=== PATIENT | female | born 1975 | race Caucasian/White ===

== ENCOUNTER → 2018-12-11 13:54 | Outpatient (CLI) | payer OTHER, SELFPAY ==
[2018-12-11 15:19] LABS: Basophils # 0.1 K/mm3 (0-0.2); Basophils % 0.8 % (0.1-2.0); Eosinophils # 0.5 K/mm3 (0.0-0.4); Eosinophils % 3.8 % (0.1-12.0); Hematocrit 47.7 % (37.0-47.0); Hemoglobin 14.7 g/dL (12.2-16.2); Lymphocytes % 23.5 % (10-50); Mean Corpuscular HGB Conc 30.8 g/dL (31.8-35.4); Mean Corpuscular Hemoglobin 31.1 pg (27.0-31.2); Mean Corpuscular Volume 101.1 fl (81-99); Mean Platelet Volume 9.3 fl (7.4-10.4); Monocytes # 0.8 K/mm3 (0.1-1.0); Neutrophils # 8.5 K/mm3 (1.8-7.8); Neutrophils % 65.9 % (37.0-80.0); Platelet Count 580 K/mm3 (142-424); Red Blood Count 4.71 M/mm3 (4.20-5.40); Red Cell Distribution Width 13.7 % (11.5-17.5); White Blood Count 12.9 K/mm3 (4.8-10.8)
[2018-12-11 20:10] LABS: Alanine Aminotransferase 20 U/L (12-78); Albumin/Globulin Ratio 1.1 (1.1-1.8); Alkaline Phosphatase 77 U/L (46-116); Anion Gap 16.3 mEq/L (5-15); Aspartate Amino Transferase 14 U/L (15-37); Bilirubin,Total 0.4 mg/dL (0.2-1.0); Blood Urea Nitrogen 14 mg/dL (7-18); Calcium 9.5 mg/dL (8.5-10.1); Carbon Dioxide 25 mmol/L (21.0-32.0); Chloride 103 mmol/L (98-107); Cholesterol 178 mg/dL (140-200); Creatinine,Serum 0.88 mg/dL (0.55-1.02); Estimated Glomerular Filt Rate 70 ml/min (>60); GFR (African American) 84 ML/MIN (>60); Globulin 3.6 gm/dl (1.3-3.2); Glucose 99 mg/dL (74-106); HDL Cholesterol 45 mg/dL (29-89); LDL Cholesterol 100 mg/dL (0-130); Potassium 4.3 mmoL/L (3.5-5.1); Sodium 140 mmol/L (136-145); T4 (Thyroxine) 10.4 ug/dl (4.7-13.3); Thyroid Stimulating Hormone 1.22 uIU/ml (0.358-3.740); Total Protein,Serum 7.6 gm/dL (6.4-8.2); Triglycerides 163 mg/dL (30-200); VLDL Cholesterol 33 mg/dL (0-40)
[2018-12-14 17:04] LABS: Vitamin D 25 Hydroxy 25.4 ng/mL (30.0-100.0)
== END ==
PROVIDERS: Visit Provider Nurse Practitioner Family
DX: Z00.00 Encounter for general adult medical examination without abnormal findings (principal); I10 Essential (primary) hypertension; E55.9 Vitamin D deficiency, unspecified
CPT/HCPCS: 80053; 80061; 82652; 84436; 84443; 85025

== ENCOUNTER → 2018-12-29 15:02 | Outpatient (CLI) | payer OTHER, SELFPAY ==
[2018-12-29 15:04] LABS: MANUAL DIFFERENTIAL MANUAL DIFFERENTIAL (MANUAL DIFF)
[2018-12-29 15:46] LABS: Basophils # 0.1 K/mm3 (0-0.2); Basophils % 0.7 % (0.1-2.0); Eosinophils # 0.7 K/mm3 (0.0-0.4); Eosinophils % 4.9 % (0.1-12.0); Hemoglobin 14.7 g/dL (12.2-16.2); Lymphocytes # 4.1 K/mm3 (0.7-4.5); Lymphocytes % 30.6 % (10-50); Mean Corpuscular HGB Conc 32.6 g/dL (31.8-35.4); Mean Corpuscular Hemoglobin 31.8 pg (27.0-31.2); Mean Corpuscular Volume 97.5 fl (81-99); Monocytes # 0.8 K/mm3 (0.1-1.0); Monocytes % 6.2 % (1.7-9.3); Neutrophils # 7.6 K/mm3 (1.8-7.8); Neutrophils % 57.6 % (37.0-80.0); Platelet Count 399 K/mm3 (142-424); Red Blood Count 4.61 M/mm3 (4.20-5.40); Red Cell Distribution Width 13.1 % (11.5-17.5); White Blood Count 13.3 K/mm3 (4.8-10.8)
[2018-12-29 18:31] LABS: Eosinophils % 4 % (0-3); Lymphocytes % 38 % (10-50); Monocytes % 3 % (2-9); Neutrophils % 55 % (42-76); Platelet Estimate Normal; RBC Morphology Normal; Total Cells Counted 100
== END ==
PROVIDERS: Visit Provider Nurse Practitioner Family
DX: R79.89 Other specified abnormal findings of blood chemistry (principal)
CPT/HCPCS: 36415; 85007; 85014; 85018; 85048; 85049

== ENCOUNTER → 2019-01-09 15:35 | Outpatient (CLI) | payer OTHER, SELFPAY ==
--- NOTE | 2019-01-09 15:37 | MM_ITS ---
PROCEDURE: MM DIG SCREENING MAMM BI W/CAD CLINICAL INDICATION: Screening There is no personal or family history of breast cancer. COMPARISON: DMDB DIG MAMM-DX DOUGIE from 01/10/2014 TECHNIQUE: Standard CC and MLO images were obtained. R2 CAD reviewed. FINDINGS: Moderate somewhat heterogenic fibroglandular densities are seen in the central portions of both breasts. There is a benign-appearing micro calcification in each breast. There is no suspicious lesion and no suspicious microcalcifications. IMPRESSION: Moderate heterogenic breast density with no suspicious lesions seen BI-RAD Category: 2 Benign Finding(s) FOLLOW-UP: 1YR 1 Year Follow-up (A letter has been sent to the patient regarding results of the study.) Dictated by: Dr. Byron Godinez MD 01/11/2019 14:[address] Byron Godinez MD in [place] 01/11/2019 14:52
== END ==
PROVIDERS: PCP Nurse Practitioner Family; Visit Provider Emergency Medicine
DX: Z12.31 Encounter for screening mammogram for malignant neoplasm of breast (principal)
CPT/HCPCS: 77067

== ENCOUNTER → 2019-03-21 06:14 | Outpatient (CLI) | payer OTHER, SELFPAY ==
--- NOTE | 2019-03-21 06:15 | CA_ITS ---
APPROVED REPORT EXAM: Comprehensive 2D, Doppler, and color-flow Echocardiogram Cota: Zoë Calhoun RVT Ht: 5 ft 7 in Wt: 211lbs BSA: 2.07 BP: 149/83 mmHg Indications: Chest Pain, Shortness of Breath, Hyperlipidemia, Hypertension,Smoker,Abn EKG 2D Dimensions LVOT 1.93 cm (M/F) 1.5-2.5 M-Mode Dimensions RVDd 2.85 cm (0.9-2.6) LVDd 5.21 cm (3.5-5.7) LVDs 3.51 cm (3.5-5.7) IVSd 0.62 cm (0.6-1.1) PWd 0.37 cm (0.6-1.1) EF (Teich) 60.60% FS 32.60% EDV (Teich) 130.10 mL ESV (Teich) 51.20 mL LV Diastology E/A Ratio 1.33 Mitral Valve MV A Velocity 60.00 (40-130 cm/s) Left Ventricle Left atrium is mildly enlarged, left ventricle is normal size, mild concentric left ventricular hypertrophy, visually estimated ejection fraction 50%, endocardial surfaces are very poorly visualized, there appears to be mild hypokinesis involving the distal septum and apical wall. Grade 1 diastolic dysfunction seen without tissue Doppler evidence of raise left atrial pressure. Right Ventricle Right atrium and right ventricle are normal size and contractility. Aortic Valve Aortic valve is minimally thickened and fibrosed leaflet chordae display good mobility, there is no aortic stenosis aortic insufficiency. Mitral Valve Mitral valve is grossly normal, there is mild mitral regurgitation. Tricuspid Valve Tricuspid valve is grossly normal, there is mild tricuspid regurgitation. Pulmonic Valve Pulmonic valve is poorly visualized. Great Vessels Aortic root is normal size. Pericardium No significant pericardial effusion noted. Conclusion 1. Mildly enlarged left atrium, normal left ventricular size, mild concentric left ventricular hypertrophy, visually estimated ejection fraction 50% with segmental wall motion abnormality described above, grade 1 diastolic dysfunction seen without tissue Doppler evidence of raise left atrial pressure, endocardial surfaces are poorly visualized. 2. Mild mitral and tricuspid regurgitation. 3. No significant pericardial effusion noted. Electronically signed by : Wallace Boyce, 03/22/2019 14:35:17
--- NOTE | 2019-03-21 06:28 | NM_ITS ---
APPROVED REPORT Exam: Nuclear Stress Test Indication: Chest pain, HTN, High cholesterol, Tobacco use, Family history Patient Location: Outpatient Stress Tech: Geno Booth NM Tech:Maida Hitchcock, ARRT, RT (R)(N) Ht: 5 ft 7 in Wt: 212 lbs Bra Size: 44D HR: 74 bpm BP: 120/48 mmHg BSA: 2.07 m2 BMI: 33.2 History: Chest pain, HTN, High cholesterol, Tobacco use, Family history Procedure: Patient received a 0.4 mg of intravenous Lexiscan, resting heart rate 74 bpm, resting blood pressure 120/48 mmHg, with Lexiscan maximum heart rate achived was 106 bpm which is Less than 85 % of the maximum predicted heart rate and blood pressure was 129/70 mmHg. With Lexiscan, patient denied any complaint of chest pain. Electrocardiogram Resting electrocardiogram shows sinus rhythm right ventricular conduction delay, with Lexiscan there is less than 1.[address] segment depression noted from the baseline EKG. The EKG portion of the Lexiscan Myoview is nondiagnostic. Cardiac Stress and Resting SPECT Images: Cardiac Stress and Resting SPECT images were obtained using technetium 99m Myoview 31.6 mCi stress and 10.28 mCi at rest. Gated SPECT for analysis of segmental wall motion and calculation of the ejection fraction also done. Cardiac stress and resting SPECT images show uniform myocardial activity without segmental perfusion abnormality, computer derived ejection fraction is over 65% with no regional wall motion abnormality, right ventricle is normal size and contractility. Conclusion: 1. The EKG portion of the Lexiscan Myoview is nondiagnostic. 2. No scintigraphic evidence of reversible ischemia seen, computer derived ejection fraction is over 65% with no regional wall motion abnormality, right ventricle is normal size and contractility. 3. Normal Lexiscan Myoview study. Electronically signed by : Wallace Boyce, 03/22/2019 12:55:16
--- NOTE | 2019-03-21 06:28 | CA_ITS ---
APPROVED REPORT Exam: Exercise Treadmill Technologist: Geno Booth Ht: 5 ft 7 in Wt: 212 lbs BSA: 2.07 m2 HR: 74 bpm BP: 120/48 mmHg Indications: Chest pain, abnormal ekg Medical History Medications: Atorvastatin,,,,, CloPIdogrel,,,,, FluTICASONE,,,,, CetIRIZINE HCI,,,,, Stress Test Details Test: LEXISCAN HR Resting HR: 71 bpm Max Heart Rate (APMHR): 176 bpm Max HR Achieved: 111 bpm Target HR (85% APMHR): 149 bpm % of APMHR: 63 Recovery HR: 86 bpm BP Resting BP: 120.0/48.0 mmHg Max BP: 129.0/70.0 mmHg Recovery BP: 115.0/65.0 mmHg ECG Clinical Exercise duration: 04:00 min Highest Stage Achieved: Exercise capacity: 1.0 METs Stress ECG Conclusion Resting ECG: Sinus rhythm Lexiscan portion complete. Patient complained of shortness of breath and chest pain during peak infusion. Symptoms: Chest pain and shortness of breath during peak infusion. Resolved in recovery. Arrhythmias/Ectopy: Occasional PVC ST-T Changes: Less than 1.[address] depression. Conclusion: Images to follow. Electronically signed by : Wallace Boyce, 03/22/2019 12:53:07
--- NOTE | 2019-03-21 07:30 | HMH.ITSHM ---
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 []BISOPROLOL ATORVASTATIN LISINOPRIL CLOPIDOGREL CETIRIZINE FLUTICASONE
== END ==
PROVIDERS: PCP Nurse Practitioner Family; Visit Provider Physician Assistant
DX: R07.9 Chest pain, unspecified (principal); R60.0 Localized edema; I10 Essential (primary) hypertension; Z72.0 Tobacco use; R94.31 Abnormal electrocardiogram [ECG] [EKG]
CPT/HCPCS: 78452; 93017; 93306; A9502; J2785

== ENCOUNTER → 2019-04-16 15:33 | Outpatient (CLI) | payer OTHER, SELFPAY ==
[2019-04-16 18:14] LABS: Alanine Aminotransferase 24 U/L (9-52); Albumin Level 4.1 g/dL (3.4-5.0); Alkaline Phosphatase 79 U/L (46-116); Aspartate Amino Transferase 16 U/L (15-37); Bilirubin,Direct 0.1 mg/dL (0.0-0.2); Bilirubin,Indirect 0.1 mg/dL (0.0-0.9); Bilirubin,Total 0.2 mg/dL (0.2-1.0); Chol/HDL Ratio 2.8 (1-3.5); Cholesterol 108 mg/dL (140-200); HDL Cholesterol 38 mg/dL (29-89); LDL Cholesterol 49 mg/dL (0-130); Total Protein,Serum 7.6 g/dL (6.4-8.2); Triglycerides 105 mg/dL (30-200); VLDL Cholesterol 21 mg/dL (0-40)
== END ==
PROVIDERS: Visit Provider Physician Assistant
DX: E78.5 Hyperlipidemia, unspecified (principal); I10 Essential (primary) hypertension; R07.9 Chest pain, unspecified; E66.9 Obesity, unspecified; Z72.0 Tobacco use
CPT/HCPCS: 36415; 80061; 80076

== ENCOUNTER 2019-11-13 13:38 | Emergency (ER) | payer OTHER, SELFPAY ==
[2019-11-13 13:56] VITALS: BP 133/82; PULSE 79; RESP 19; TEMP 36.9; O2SAT 99; BMI 33.0
--- NOTE | 2019-11-13 14:26 | HMH.EDUTC ---
[facility] [place] Disposition Clinical Impression: Abdominal pain Qualifiers: Abdominal location: epigastric Qualified Code(s): R10.13 - Epigastric pain Disposition: Still a Patient Condition on Discharge: Fair Referrals: Clifton Armstrong MD [Primary Care Provider] - Time of Disposition: 14:39 Medical Decision Making - Medical Records Medical records reviewed: No: I reviewed the patient's medical records. - Johnson Inquiry Pt receiving controlled substance: No Vital Signs: 11/13/19 13:56 Temperature 98.4 F Temperature Source Oral Pulse Rate [Right Brachial] 79 Respiratory Rate 19 Blood Pressure [Right Arm] 133/82 Blood Pressure Mean [Right Arm] 99 Blood Pressure Source [Right Arm] Automatic Cuff Blood Pressure Position [Right Arm] Sitting 02 Sat by Pulse Oximetry 99 Oxygen Delivery Method Room Air Medical Decision Narrative: I transferred her to the ER due to the abdominal pain and the severity of her abdominal tenderness. [facility] HPI - General Stated complaint: pain near nable Time Seen by Provider: 11/13/19 14:26 Mode of Arrival: Ambulatory Source of Information: Patient Limitations: No Limitations Description of Symptoms (Recalled from Triage Doc. by RN): PATIENT STATES SHE WAS PICKING UP TOYS TUESDAY AND FELT A PAIN BEHIND HER BELLY BUTTON; C/O SORENESS AND TENDERNESS IN THIS AREA NOW HEENT Symptoms (Recalled from RN notes): No Resp Symptoms (Recalled from RN notes): No Skin Symptoms (Recalled from RN notes): No MS Symptoms (Recalled from RN notes): No Functional Status (Recalled from RN notes): WNL - History of Present Illness Provider Complaint: She states that on Tuesday (4 days ago) she was bending over picking up toys and she felt something pull in her abdominal wall. Since then she has had moderate to severe tenderness in the area surrounding her navel. She states that she has also been able to see a buldge in the area just to her left of her navel. She has had nausea and poor appetite accompaning the pain. She denies any change in her bowel movements. - Related Data Home Medications Medication Instructions Recorded Confirmed Cetirizine HCl [Zyrtec] 10 mg PO DAILY 01/27/19 10/16/19 Previous Rx's Medication Instructions Recorded Clopidogrel Bisulfate [Plavix 75mg 75 mg PO DAILY #30 tab 03/16/19 Tab] atorvastatin 10 mg tablet 10 mg PO HS #30 tab 03/23/19 bisoprolol fumarate 5 mg tablet 5 mg PO DAILY #30 tab 03/23/19 lisinopril 40 mg tablet 40 mg PO DAILY #90 tab 10/16/19 Allergies Allergy/AdvReac Type Severity Reaction Status Date / Time azithromycin AdvReac Mild stomach Verified 10/16/19 15:41 [From Zithromax Z-Abel] cramping - Worker's Comp Is this a Worker's Comp case?: No [facility] History - Hepatitis A Screen Drug use history?: No High risk sexual behaviors?: No History of sexually transmitted infection?: No Currently employed?: No Childcare worker?: No Do you have indoor plumbing?: Yes Do you have electricity?: Yes Attestation statement:: This patient has been screened for Hepatitis A risk factors. I have reviewed the patient's past medical history: Yes Medical History: Reports:: Coronary Artery Disease, Gastroesophageal Reflux Disease(GERD), Hyperlipidemia, Hypertension Other Medical History: Reports: Sinus Problems Other Surgeries: Yes: No Previous Surgery, Cardiac Catheterization, Tubal Ligation, Other Amputation: No Fractures: No - Social History Smoking Status: Current every day smoker Tobacco Type: cigarettes # Packs/Day (cigarettes): 1 #Yrs smoked (if former smoker): 15 Alcohol Intake: never Substance Use Type: denies use Occupational Status: other Family Hx:: Cancer, Heart Attack, Coronary Artery Disease Comment: Brother- of [place]@48 ROS Obtained: Yes All systems reviewed & no additional complaints - Constitutional Constitutional: Denies chills, Denies fever(s), Reports poor appetite, Reports malaise - Eyes Eyes: Denies eye discharg
--- NOTE | 2019-11-13 14:39 | PC.NURSE ---
PATIENT SENT TO ER PER BELA CEBALLOS APRN FOR FURTHER EVALUATION FOR ABDOMINAL TENDERNESS BEHIND UMBILICUS. REPORT GIVEN TO Yamileth MURRAY RN
[2019-11-13 14:52] VITALS: BP 131/89; PULSE 88; RESP 17; TEMP 37; O2SAT 99; BMI 33.0
--- NOTE | 2019-11-13 14:55 | CT_ITS ---
PROCEDURE: CT ABDOMEN PELVIS W CON CLINICAL INDICATION: abd pain Left-sided abdominal pain COMPARISON: No exams were available for comparison TECHNIQUE: IV Contrast: 75ML OPTIRAY 350 Oral Contrast None Axial images obtained with sagittal and coronal reformats. All CT scans at the facility use one or more dose reduction, viz: automated exposure control, ma/kV adjustment per patient size (including targeted exams where dose is matched to indication, i.e. head), or iterative reconstruction technique. FINDINGS: The liver, gallbladder, spleen, adrenal glands, and pancreas have an unremarkable appearance. No renal or ureteral calculi. There is mild nonspecific thickening of the distal esophagus. Negative appendix. Colonic diverticulosis without diverticulitis. There is a small left ovarian cyst at 2 cm. Hyperdensity is noted along the left aspect of the fundus of the uterus measuring 1.5 cm suggesting a small fibroid. An additional hyperdensity along the fundus of the uterus on the right at 7 mm and may be due to small fibroid. Bilateral tubal ligation. Small inguinal lymph nodes are present bilaterally. There is degenerative disc disease at L1-L2 IMPRESSION: No acute abdominal pelvic finding. Colonic diverticulosis without diverticulitis 2 cm left ovarian cyst. Uterine fibroids Nonspecific thickening of the distal esophagus Dictated by: Emery Momin MD 11/13/2019 17:35 Emery Momin MD in [place] 11/13/2019 17:35
[2019-11-13 15:02] LABS: Microscopic, Urine URINE MICROSCOPIC (MICROSCOPIC)
[2019-11-13 15:04] LABS: Basophils # 0.1 K/mm3 (0-0.2); Basophils % 0.6 % (0.1-2.0); Eosinophils # 0.7 K/mm3 (0.0-0.4); Eosinophils % 4.6 % (0.1-12.0); Hematocrit 48.2 % (37.0-47.0); Hemoglobin 16.1 g/dL (12.2-16.2); Lymphocytes # 3.4 K/mm3 (0.7-4.5); Lymphocytes % 23.3 % (10-50); Mean Corpuscular HGB Conc 33.5 g/dL (31.8-35.4); Mean Corpuscular Hemoglobin 33.1 pg (27.0-31.2); Mean Corpuscular Volume 99.1 fl (81-99); Mean Platelet Volume 8.2 fl (7.4-10.4); Monocytes # 0.7 K/mm3 (0.1-1.0); Monocytes % 4.9 % (1.7-9.3); Neutrophils # 9.6 K/mm3 (1.8-7.8); Neutrophils % 66.5 % (37.0-80.0); Platelet Count 418 K/mm3 (142-424); Red Blood Count 4.87 M/mm3 (4.20-5.40); Red Cell Distribution Width 13.1 % (11.5-17.5); White Blood Count 14.4 K/mm3 (4.8-10.8)
[2019-11-13 15:05] LABS: Appearance,Urine CLEAR (Clear); Bilirubin,Urine Negative (Negative); Blood, Urine Negative (Negative); Color,Urine YELLOW (Yellow); Glucose,Urine (UA) Negative (Negative); Ketones,Urine Negative (Negative); Leukocyte Esterase,Urine Negative (Negative); Nitrate,Urine Negative (Negative); PH,Urine 5.5 (5.0-8.5); Protein,Urine Negative (Negative); Specific Gravity, Urine 1.015 (1.005-1.030); Urobilinogen,Urine 0.2 EU/dl (0.2)
[2019-11-13 15:18] LABS: Chloride 103 mmol/L (98-107); Potassium 4.4 mmoL/L (3.5-5.1); Sodium 140 mmol/L (136-145)
--- NOTE | 2019-11-13 15:18 | HMH.EDGENADL ---
ED Disposition Clinical Impression: Abdominal muscle strain Qualifiers: Encounter type: initial encounter Qualified Code(s): S39.011A - Strain of muscle, fascia and tendon of abdomen, initial encounter Disposition: Home, Self-Care Condition on Discharge: Good Instructions: DI for Abdominal Pain-Adult Additional Instructions: Ibuprofen for pain. Follow-up with primary care provider if not improving in 2 to 3 days. Additional instructions for ABDOMINAL PAIN: Return immediately if worsening abdominal pain, vomiting, shortness of breath, fever, vomiting of blood or abdominal distention. Referrals: Clifton Armstrong MD [Primary Care Provider] - Forms: Work/School Release - Critical Care Critical Care Time: No Attestation: On 11/13/19, the high probability of a clinically significant, sudden or life threatening deterioration of the following system(s) required my full and direct attention, intervention and personal management. The time I documented below is in addition to time spent performing reported procedures but includes the following listed in this critical care notation. Medical Decision Making - Medical Records Medical records reviewed: Yes: I reviewed the patient's medical records. - Johnson Inquiry Pt receiving controlled substance: No Vital Signs: 11/13/19 13:56 11/13/19 14:52 11/13/19 17:45 Temperature 98.4 F 98.6 F Temperature Source Oral Oral Pulse Rate Pulse Rate [Right Brachial] 79 88 85 Respiratory Rate 19 17 17 Blood Pressure Blood Pressure [Right Arm] 133/82 131/89 119/79 Blood Pressure Mean [Right Arm] 99 103 92 Blood Pressure Source [Right Arm] Automatic Cuff Blood Pressure Position [Right Arm] Sitting 02 Sat by Pulse Oximetry 99 99 98 Oxygen Delivery Method Room Air Room Air 11/13/19 18:40 Temperature 98.6 F Temperature Source Oral Pulse Rate 89 Pulse Rate [Right Brachial] Respiratory Rate 18 Blood Pressure 125/70 Blood Pressure [Right Arm] Blood Pressure Mean [Right Arm] Blood Pressure Source [Right Arm] Blood Pressure Position [Right Arm] 02 Sat by Pulse Oximetry Oxygen Delivery Method Room Air - Lab Data Lab results reviewed: Yes: I reviewed the patient's lab results. Lab Results 11/13/19 14:50: Urine Color Yellow, Urine Appearance Clear, Urine pH 5.5, Ur Specific Vulcan 1.015, Urine Protein Negative, Urine Glucose (UA) Negative, Urine Ketones Negative, Urine Blood Negative, Urine Nitrate Negative, Urine Bilirubin Negative, Urine Urobilinogen 0.2, Ur Leukocyte Esterase Negative, Urine WBC 3-5, Ur Squamous Epith Cells 3-5 11/13/19 14:50: WBC 14.4 H, RBC 4.87, Hgb 16.1, Hct 48.2 H, MCV 99.1 H, MCH 33.1 H, MCHC 33.5, RDW 13.1, Plt Count 418, MPV 8.2, Neut % (Auto) 66.5, Lymph % (Auto) 23.3, Young % (Auto) 4.9, Eos % (Auto) 4.6, Baso % (Auto) 0.6, Neut # (Auto) 9.6 H, Lymph # (Auto) 3.4, Young # (Auto) 0.7, Eos # (Auto) 0.7 H, Baso # (Auto) 0.1 11/13/19 14:50: Sodium 140, Potassium 4.4, Chloride 103, Carbon Dioxide 24, Anion Gap 17.4 H, BUN 13, Creatinine 0.70, Estimated Creat Clear 153, Estimated GFR 90, Est GFR ( Amer) 109, Glucose 111 H, Calcium 10.3 H, Total Bilirubin 0.6, AST 32, ALT 27, Alkaline Phosphatase 89, Total Protein 8.5 H, Albumin 4.8, Globulin 3.7 H, Albumin/Globulin Ratio 1.3, Amylase 76, Lipase 78 Result diagrams: 11/13/19 14:50 11/13/19 14:50 Orders (Tests/Meds): ED MEDICATIONS Discontinued Medications Generic Name Dose Route Start Last Admin Trade Name Shira PRN Reason Stop Dose Admin Ioversol 75 ml 11/13/19 16:08 11/13/19 16:09 Rad-Optiray 350 100ml Vial IV 11/13/19 16:09 75 ml ONCE ONE Administration Protocol Sodium Chloride 10 ml 11/13/19 16:08 11/13/19 16:09 Rad-Saline Flush 10ml Syringe IV 11/13/19 16:09 10 ml ONCE ONE Administration - CT Data CT Scan: Abdomen, Pelvis Time Received: 18:[address] Reviewed: Yes: I have viewed the radiologist's interpretation Findings Narrat
[2019-11-13 15:20] LABS: Alanine Aminotransferase 27 U/L (12-78); Alkaline Phosphatase 89 U/L (38-126); Amylase 76 U/L (30-110); Anion Gap 17.4 mEq/L (5-15); Aspartate Amino Transferase 32 U/L (14-36); Bilirubin,Total 0.6 mg/dl (0.2-1.3); Blood Urea Nitrogen 13 mg/dl (7-17); Carbon Dioxide 24 mmol/L (22.0-30.0); Creatinine Clearance Estimated 153 mL/min (50-200); Estimated Glomerular Filt Rate 90 ml/min (>60); GFR (African American) 109 ML/MIN (>60)
[2019-11-13 15:21] LABS: Albumin Level 4.8 g/dl (3.5-5.0); Albumin/Globulin Ratio 1.3 (1.1-1.8); Calcium 10.3 mg/dl (8.4-10.2); Globulin 3.7 g/dL (1.3-3.2); Glucose 111 mg/dl (74-100); Lipase 78 U/L (23-300); Total Protein,Serum 8.5 g/dl (6.3-8.2)
--- NOTE | 2019-11-13 15:40 | PC.NURSE ---
spoke with radiology concerning ct report. radiology states that radiologist is covered up report sent to [facility] for timely reading.
[2019-11-13 17:45] VITALS: BP 119/79; PULSE 85; RESP 17; O2SAT 98
--- NOTE | 2019-11-13 18:07 | PC.NURSE ---
pt and family updated on plan of care both deny needs or questions. awaiting ct report from [facility].
[2019-11-13 18:40] VITALS: BP 125/70; PULSE 89; RESP 18; TEMP 37; O2SAT 100
== END 2019-11-13 18:44 | disposition home or self-care (01) ==
LOC: UTC 14:39 → ER 14:40
PROVIDERS: Emergency Provider Emergency Medicine; PCP Emergency Medicine
DX: S39.011A Strain of muscle, fascia and tendon of abdomen, initial encounter (principal); X50.0XXA Overexertion from strenuous movement or load, initial encounter; I25.10 Atherosclerotic heart disease of native coronary artery without angina pectoris; K21.9 Gastro-esophageal reflux disease without esophagitis; E78.5 Hyperlipidemia, unspecified; I10 Essential (primary) hypertension; F17.210 Nicotine dependence, cigarettes, uncomplicated
CPT/HCPCS: 74177; 80053; 81001; 82150; 83690; 85025; 99284; Q9967

== ENCOUNTER → 2020-04-15 10:21 | Outpatient (CLI) | payer OTHER, SELFPAY ==
[2020-04-15 11:21] LABS: Chloride 107 mmol/L (98-107); Potassium 4.7 mmoL/L (3.5-5.1); Sodium 139 mmol/L (136-145)
[2020-04-15 11:23] LABS: Alanine Aminotransferase 18 U/L (12-78); Anion Gap 10.7 mEq/L (5-15); Aspartate Amino Transferase 22 U/L (14-36); Bilirubin,Unconjugated 0.2 mg/dL (0.0-1.1); Blood Urea Nitrogen 16 mg/dl (7-17); Carbon Dioxide 26 mmol/L (22.0-30.0); Estimated Glomerular Filt Rate 60 ml/min (>60); GFR (African American) 73 ML/MIN (>60)
[2020-04-15 11:24] LABS: Albumin Level 4.5 g/dl (3.5-5.0); Alkaline Phosphatase 66 U/L (38-126); Bilirubin,Direct 0.2 mg/dl (0.0-0.4); Bilirubin,Indirect 0.2 mg/dL (0.0-0.9); Bilirubin,Total 0.4 mg/dl (0.2-1.3); Calcium 10.1 mg/dl (8.4-10.2); Chol/HDL Ratio 3.1 (1-3.5); Cholesterol 187 mg/dl (140-200); Glucose 112 mg/dl (74-100); HDL Cholesterol 61 mg/dl (40-60); Total Protein,Serum 7.6 g/dl (6.3-8.2); Triglycerides 167 mg/dl (30-150); VLDL Cholesterol 33 mg/dL (0-40)
[2020-04-15 11:35] LABS: Direct LDL Cholesterol 95.62 mg/dL (100-129)
== END ==
PROVIDERS: Visit Provider Physician Assistant
DX: I25.10 Atherosclerotic heart disease of native coronary artery without angina pectoris (principal); I10 Essential (primary) hypertension; Z79.899 Other long term (current) drug therapy
CPT/HCPCS: 36415; 80048; 80061; 80076

== ENCOUNTER → 2020-06-11 06:44 | Outpatient (CLI) | payer OTHER, SELFPAY ==
[2020-06-11 07:25] LABS: Bilirubin,Unconjugated 0.7 mg/dL (0.0-1.1)
[2020-06-11 07:26] LABS: Alanine Aminotransferase 22 U/L (12-78); Albumin Level 4.4 g/dl (3.5-5.0); Alkaline Phosphatase 71 U/L (38-126); Aspartate Amino Transferase 23 U/L (14-36); Bilirubin,Indirect 0.6 mg/dL (0.0-0.9); Bilirubin,Total 0.6 mg/dl (0.2-1.3); Chol/HDL Ratio 2.1 (1-3.5); Cholesterol 108 mg/dl (140-200); HDL Cholesterol 52 mg/dl (40-60); Triglycerides 80 mg/dl (30-150); VLDL Cholesterol 16 mg/dL (0-40)
[2020-06-11 07:37] LABS: Direct LDL Cholesterol 36.19 mg/dL (100-129)
== END ==
PROVIDERS: Visit Provider Physician Assistant
DX: E78.5 Hyperlipidemia, unspecified (principal); I11.9 Hypertensive heart disease without heart failure; I25.10 Atherosclerotic heart disease of native coronary artery without angina pectoris; Z72.0 Tobacco use
CPT/HCPCS: 36415; 80061; 80076

== ENCOUNTER → 2020-06-19 09:03 | Outpatient (CLI) | payer OTHER, SELFPAY ==
--- NOTE | 2020-06-19 11:30 | XR_ITS ---
PROCEDURE: XR WRIST RT MIN 3V CLINICAL INDICATION: Rt wrist pain COMPARISON: No exams were available for comparison FINDINGS: No fracture or dislocation. No lytic or blastic change. There is normal mineralization. The joint spaces are well-preserved. No significant degenerative/arthritic changes. No erosive changes evident. Other findings:There is a small well-circumscribed cystic area within the lunate medially. This area measures approximately 3 x 2 mm and is nonspecific. IMPRESSION: No acute finding. Benign-appearing cystic area the lunate Dictated by: Emery Momin MD 06/19/2020 14:23 Emery Momin MD in [place] 06/19/2020 14:23
== END ==
PROVIDERS: PCP Emergency Medicine; Visit Provider Orthopaedic Surgery
DX: M25.531 Pain in right wrist (principal)
CPT/HCPCS: 73110

== ENCOUNTER 2020-06-20 09:16 | Outpatient (RCR) | payer OTHER, SELFPAY | END 2020-06-20 10:10 | disposition home or self-care (01) | LOC: OT 09:16 | PROVIDERS: Visit Provider Orthopaedic Surgery | DX: M65.4 Radial styloid tenosynovitis [de Quervain] (principal) | CPT/HCPCS: 97763 ==

== ENCOUNTER 2020-10-05 18:33 | Emergency (ER) | payer OTHER, SELFPAY ==
[2020-10-05 18:45] VITALS: BP 130/86; PULSE 103; RESP 24; TEMP 37.8; O2SAT 96; BMI 33.2
[2020-10-05 19:11] LABS: UTC Strep Screen (Rapid) Negative (Negative)
[2020-10-05 19:16] LABS: Influenza A, PCR Not Detected (NotDetected); Influenza B, PCR Not Detected (NotDetected)
--- NOTE | 2020-10-05 19:37 | HMH.EDUTC ---
[facility] [place] Disposition Clinical Impression: Exposure to COVID-19 virus Disposition: Home, Self-Care Condition on Discharge: Good Instructions: DI for COVID-19 (Suspected or Confirmed ), Coronavirus Disease 2019, COVID-19: Testing and Tracing, Preventing the Spread of Coronavirus Discharge Instructions Additional Instructions: No sign of a bacterial infection. Likely viral. Viruses can take 7-14 days to run their course. Nasal saline and bulb syringe or nose Suyapa to remove nasal drainage to help with nasal congestion. Hard to eat, drink, sleep with nasal congestion so important to keep this cleaned out. Monitor temp. Tylenol or Motrin as needed for pain or fever Encourage fluids, water, Gatorade, Powerade, Pedialyte if /toddler/child Warm salt water gargles Warm fluids Sore throat lozenges Sleep elevated Humidifier/vaporizer Follow-up immediately for new or worsening symptoms or no noticeable improvement over the next 48-72 hours. your covid swab was sent to lab call tomorrow for test result Referrals: Clifton Armstrong MD [Primary Care Provider] - Time of Disposition: 19:41 Medical Decision Making - Johnson Inquiry Pt receiving controlled substance: No Vital Signs: 10/05/20 18:45 Temperature 100.0 F H Temperature Source Oral Pulse Rate [Right Brachial] 103 H Respiratory Rate 24 Blood Pressure [Right Arm] 130/86 Blood Pressure Mean [Right Arm] 100 Blood Pressure Source [Right Arm] Automatic Cuff Blood Pressure Position [Right Arm] Sitting 02 Sat by Pulse Oximetry 96 Oxygen Delivery Method Room Air - Lab Data Lab Results 10/05/20 19:04: Strep Scn Rapid Clinic Negative Orders (Tests/Meds): ORDERS Category Date Time Status Rapid PCR Covid and Flu A/B Stat Lab 10/05/20 18:05 Received Strep Screen Confirmation Stat Micro 10/05/20 19:04 Received [facility] [place] HPI - General Chief complaint: [facility]gent [facility] Stated complaint: fever,Symptoms Time Seen by Provider: 10/05/20 19:37 Mode of Arrival: Ambulatory Source of Information: Patient Limitations: No Limitations Description of Symptoms (Recalled from Triage Doc. by RN): PATIENT C/O FEVER, HEADACHE, SORE THROAT, AND BODY ACHES THAT STARTED YESTERDAY. RECENTLY EXPOSED TO COVID HEENT Symptoms (Recalled from RN notes): Yes Resp Symptoms (Recalled from RN notes): No Skin Symptoms (Recalled from RN notes): No MS Symptoms (Recalled from RN notes): No Functional Status (Recalled from RN notes): WNL - History of Present Illness Provider Complaint: 45 yr old female presents for cough, body aches,chills and sore throat that started yesterday. has been exposed to covid and has had covid vaccine - Related Data Home Medications Medication Instructions Recorded Confirmed Cetirizine HCl [Zyrtec] 10 mg PO DAILY 01/27/19 06/20/20 Previous Rx's Medication Instructions Recorded lisinopril 40 mg tablet 40 mg PO DAILY #90 tab 10/16/19 atorvastatin 40 mg tablet 40 mg PO DAILY #90 tab 04/15/20 clopidogrel 75 mg tablet See Rx Instructions .ROUTE 05/20/20 .COMPLEX #30 tab bisoprolol fumarate 5 mg tablet See Rx Instructions .ROUTE 07/14/20 .COMPLEX #30 tab Allergies Allergy/AdvReac Type Severity Reaction Status Date / Time azithromycin AdvReac Mild stomach Verified 06/20/20 08:44 [From Zithromax Z-Abel] cramping - Worker's Comp Is this a Worker's Comp case?: No [facility] History - Hepatitis A Screen Drug use history?: No High risk sexual behaviors?: No History of sexually transmitted infection?: No Currently employed?: No Childcare worker?: No Do you have indoor plumbing?: Yes Do you have electricity?: Yes Attestation statement:: This patient has been screened for Hepatitis A risk factors. I have reviewed the patient's past medical history: Yes Medical History: Reports:: Coronary Artery Disease, Gastroesophageal Reflux Disease(GERD), Hyperlipidemia, Hypertension Other Medical History: Reports: Sinus Problems Other S
[2020-10-05 19:41] LABS: Coronavirus 19, PCR Detected (NotDetected)
[2020-10-05 19:42] VITALS: BP 130/86; PULSE 103; RESP 24; TEMP 37.8; O2SAT 96
--- NOTE | 2020-10-05 19:43 | PC.NURSE ---
PATIENT NOTIFIED OF POSITIVE COVID TEST AT THIS TIME
== END 2020-10-05 19:47 | disposition home or self-care (01) ==
PROVIDERS: Emergency Provider Nurse Practitioner Family; PCP Emergency Medicine
DX: U07.1 COVID-19 (principal); K21.9 Gastro-esophageal reflux disease without esophagitis; E78.5 Hyperlipidemia, unspecified; I10 Essential (primary) hypertension; I25.10 Atherosclerotic heart disease of native coronary artery without angina pectoris; F17.210 Nicotine dependence, cigarettes, uncomplicated
CPT/HCPCS: 87880; 99203; G0463; U0003

== ENCOUNTER 2020-10-14 17:25 | Emergency (ER) | payer OTHER, SELFPAY ==
[2020-10-14 17:27] VITALS: BP 130/69; PULSE 76; RESP 20; TEMP 37; O2SAT 99; BMI 33.2
[2020-10-14 18:10] VITALS: BMI 33.2
--- NOTE | 2020-10-14 18:11 | CT_ITS ---
PROCEDURE INFORMATION: Exam: CTA Chest With Contrast Exam date and time: 10/14/2020 6:11 PM Age: 45 years old Clinical indication: Left-sided; Patient HX: Left posterior rib pain with breathing, covid + 8-8-21; Additional info: Pe protocol TECHNIQUE: Imaging protocol: Computed tomographic angiography of the chest with contrast. 3D rendering (Not supervised by radiologist): MIP and/or 3D reconstructed images were created by the technologist. Radiation optimization: All CT scans at this facility use at least one of these dose optimization techniques: automated exposure control; mA and/or kV adjustment per patient size (includes targeted exams where dose is matched to clinical indication); or iterative reconstruction. Contrast material: ISOVUE; Contrast volume: 70 ml; Contrast route: INTRAVENOUS (IV); COMPARISON: CR XR CHEST 2V 03/15/2019 9:40 PM FINDINGS: Pulmonary arteries: Normal. No pulmonary emboli. Aorta: Unremarkable. No aortic aneurysm. No aortic dissection. Lungs: 5 mm and 3 mm pulmonary nodule in the lingula. No pneumonia. Pleural spaces: Unremarkable. No pneumothorax. No pleural effusion. Heart: Unremarkable. No cardiomegaly. No pericardial effusion. Lymph nodes: Unremarkable. No enlarged lymph nodes. Bones/joints: Unremarkable. No acute fracture. Soft tissues: Unremarkable. IMPRESSION: 1. No acute cardiopulmonary process. No pulmonary embolism. 2. 5mm and 3 mm pulmonary nodules in the lingula. For patients at low risk (minimal or absent history of smoking and of other known risk factors), no routine follow-up is indicated. For patients at high risk (history of smoking or of other known risk factors), consider optional CT at 12 months. (dario Rodriguez., Fleischner Society, 2017)
--- NOTE | 2020-10-14 18:12 | PC.NURSE ---
UA sent to lab
[2020-10-14 18:31] LABS: Basophils # 0.1 K/mm3 (0-0.2); Basophils % 0.6 % (0.1-2.0); Eosinophils # 0.6 K/mm3 (0.0-0.4); Eosinophils % 4.4 % (0.1-12.0); Hematocrit 44.3 % (37.0-47.0); Hemoglobin 14.8 g/dL (12.2-16.2); Lymphocytes # 2.9 K/mm3 (0.7-4.5); Lymphocytes % 22.3 % (10-50); Mean Corpuscular HGB Conc 33.4 g/dL (31.8-35.4); Mean Corpuscular Hemoglobin 30.6 pg (27.0-31.2); Mean Corpuscular Volume 91.6 fl (81-99); Monocytes # 0.7 K/mm3 (0.1-1.0); Monocytes % 5.5 % (1.7-9.3); Neutrophils # 8.7 K/mm3 (1.8-7.8); Neutrophils % 67.1 % (37.0-80.0); Platelet Count 377 K/mm3 (142-424); Red Blood Count 4.84 M/mm3 (4.20-5.40); Red Cell Distribution Width 13.1 % (11.5-17.5)
[2020-10-14 18:32] LABS: Chloride 106 mmol/L (98-107); Potassium 3.9 mmoL/L (3.5-5.1); Sodium 139 mmol/L (136-145)
[2020-10-14 18:35] LABS: Alanine Aminotransferase 19 U/L (12-78); Albumin Level 4.3 g/dl (3.5-5.0); Albumin/Globulin Ratio 1.4 (1.1-1.8); Alkaline Phosphatase 70 U/L (38-126); Anion Gap 13.9 mEq/L (5-15); Aspartate Amino Transferase 27 U/L (14-36); Bilirubin,Total 0.3 mg/dl (0.2-1.3); Blood Urea Nitrogen 13 mg/dl (7-17); Calcium 8.9 mg/dl (8.4-10.2); Carbon Dioxide 23 mmol/L (22.0-30.0); Creatinine Clearance Estimated 115 mL/min (50-200); Estimated Glomerular Filt Rate 67 ml/min (>60); GFR (African American) 82 ML/MIN (>60); Glucose 120 mg/dl (74-100); Total Protein,Serum 7.3 g/dl (6.3-8.2)
--- NOTE | 2020-10-14 19:03 | HMH.EDGENADL ---
ED Disposition Clinical Impression: Pleuritis, Chest wall pain Disposition: Home, Self-Care Condition on Discharge: Good Instructions: DI for Pleurisy Additional Instructions: Ibuprofen for pain. Return emergency department for worsening symptoms. Follow-up with primary care doctor if not improved in 4 to 5 days. Prescriptions: Ibuprofen [Ibuprofen 800mg Tablet] 800 mg PO Q8HP PRN #15 tab PRN Reason: Moderate Pain Transmission Status: Pending to [id number] Referrals: Clifton Armstrong MD [Primary Care Provider] - - Critical Care Critical Care Time: No Attestation: On 10/14/20, the high probability of a clinically significant, sudden or life threatening deterioration of the following system(s) required my full and direct attention, intervention and personal management. The time I documented below is in addition to time spent performing reported procedures but includes the following listed in this critical care notation. Medical Decision Making - Johnson Inquiry Pt receiving controlled substance: No Vital Signs: 10/14/20 17:27 Temperature 98.6 F Temperature Source Oral Pulse Rate [Left Radial] 76 Respiratory Rate 20 Blood Pressure [Right Arm] 130/69 Blood Pressure Mean [Right Arm] 89 Blood Pressure Source [Right Arm] Automatic Cuff Blood Pressure Position [Right Arm] Sitting 02 Sat by Pulse Oximetry 99 Oxygen Delivery Method Room Air - Lab Data Lab Results 10/14/20 18:05: WBC 13.0 H, RBC 4.84, Hgb 14.8, Hct 44.3, MCV 91.6, MCH 30.6, MCHC 33.4, RDW 13.1, Plt Count 377, MPV 8.0, Neut % (Auto) 67.1, Lymph % (Auto) 22.3, Camp % (Auto) 5.5, Eos % (Auto) 4.4, Baso % (Auto) 0.6, Neut # (Auto) 8.7 H, Lymph # (Auto) 2.9, Camp # (Auto) 0.7, Eos # (Auto) 0.6 H, Baso # (Auto) 0.1 10/14/20 18:05: Sodium 139, Potassium 3.9, Chloride 106, Carbon Dioxide 23, Anion Gap 13.9, BUN 13, Creatinine 0.90, Estimated Creat Clear 115, Estimated GFR 67, Est GFR ( Amer) 82, Glucose 120 H, Calcium 8.9, Total Bilirubin 0.3, AST 27, ALT 19, Alkaline Phosphatase 70, Total Protein 7.3, Albumin 4.3, Globulin 3.0, Albumin/Globulin Ratio 1.4 Result diagrams: 10/14/20 18:05 10/14/20 18:05 Orders (Tests/Meds): ED MEDICATIONS Generic Name Dose Route Start Last Admin Trade Name Freq PRN Reason Stop Dose Admin Ketorolac Tromethamine 30 mg 10/14/20 19:12 Ketorolac 30mg/Ml Vial IV 10/14/20 19:13 ONCE ONE Discontinued Medications Generic Name Dose Route Start Last Admin Trade Name Freq PRN Reason Stop Dose Admin Iopamidol 75 ml 10/14/20 18:33 10/14/20 18:34 Iopamidol-370 (76%);100ml Bottle IV 10/14/20 18:34 75 ml ONCE ONE Administration Sodium Chloride 10 ml 10/14/20 18:33 10/14/20 18:34 Sodium Chloride 0.9% 10ml Syr (Rad Only) IV 10/14/20 18:34 10 ml ONCE ONE Administration Sodium Chloride 50 ml 10/14/20 18:33 10/14/20 18:34 0.9 % Sodium Chloride 50 Ml Vial IV 10/14/20 18:34 50 ml ONCE ONE Administration General Adult HPI - General Chief complaint: PAIN Stated complaint: l SIDE AND BACK Time Seen by Provider: 10/14/20 19:03 Mode of Arrival: Ambulatory Limitations: No Limitations Description of Symptoms (Recalled from ER Triage Doc. by RN): pt c/o upper back pain when she takes a deep breath and coughs since this morning. - History of Present Illness HPI narrative: Complains of the left lateral pleuritic type of chest pain that started this morning. Cannot take a deep breath when she gets it. Hurts when she takes a deep breath. No hemoptysis. No leg pain or swelling. Diagnosed with Covid on 10/05/2020. Previously vaccinated. No treatment, says she just stayed home. No fever for the past 4 days. Patient is a smoker. Has taken Tylenol for her symptoms. - Related Data Home Medications Medication Instructions Recorded Confirmed Cetirizine HCl [Zyrtec] 10 mg PO DAILY 01/27/19 06/20/20 Previous Rx's Medication Instructions
[2020-10-14 20:26] VITALS: BP 127/73; PULSE 62; RESP 16; TEMP 36.7; O2SAT 98
== END 2020-10-14 20:26 | disposition home or self-care (01) ==
PROVIDERS: Emergency Provider Emergency Medicine; PCP Emergency Medicine
DX: R09.1 Pleurisy (principal); Z88.1 Allergy status to other antibiotic agents; Z79.899 Other long term (current) drug therapy; I25.10 Atherosclerotic heart disease of native coronary artery without angina pectoris; K21.9 Gastro-esophageal reflux disease without esophagitis; E78.5 Hyperlipidemia, unspecified; I10 Essential (primary) hypertension; Z72.0 Tobacco use
CPT/HCPCS: 71275; 80053; 85025; 99283; Q9967

== ENCOUNTER → 2020-10-27 09:40 | Outpatient (CLI) | payer OTHER, SELFPAY ==
--- NOTE | 2020-10-27 09:40 | CA_ITS ---
APPROVED REPORT EXAM: Comprehensive 2D, Doppler, and color-flow Echocardiogram Business Process Expert: Radha Dumont CRT Ht: 5 ft 6 in Wt: 213lbs BSA: 2.05 BP: 111/79 mmHg Indications: SOA,PALPS,HX COVID 09/2020,HTN,HLD,CAD,GERD 2D Dimensions LVOT 1.89 cm (M/F) 1.5-2.5 LA Volume 37.40 mL LA Volume Index 18.24 mL/m2 (M/F) 16-34 M-Mode Dimensions RVDd 2.06 cm (0.9-2.6) LA Diam 3.14 cm (1.9-4.0) LVDd 4.78 cm (3.5-5.7) Ao Diam 3.16 cm (2.0-3.7) LVDs 3.09 cm (3.5-5.7) IVSd 1.16 cm (0.6-1.1) PWd 0.63 cm (0.6-1.1) EF (Teich) 64.70% FS 35.40% EDV (Teich) 106.50 mL TAPSE 1.98 (<1.7) ESV (Teich) 37.60 mL LV Diastology E Decel Time 243.00 (160-240 msec) E/A Ratio 1.4 LAT E' 10.60 (<10 cm/sec) LAT A' 13.60 cm/s E/LAT E' Ratio 8.00 (>14) Aortic Valve AO Peak GR. 6.10 mmHg Mitral Valve MV E Max Denis. 85.00 (40-130 cm/s) MV A Velocity 60.00 (40-130 cm/s) E/A Ratio 1.40 MV Decel. Time 243.00 (160-240 ms) MV PHT 71.00 ms Pulmonary Valve PV Peak Velocity 80.00 (50-150 cm/s) Tricuspid Valve TR P. Velocity 180.00 cm/s RAP Estimate 10.00 mmHg RVSP 22.90 mmHg Left Ventricle Technically difficult study because of the patient factors and poor acoustic windows. Left atrium is normal size, left ventricle is normal size, there is no concentric left ventricular hypertrophy, visually estimated ejection fraction 55% with no regional wall motion abnormality, diastolic parameters are within normal range. Right Ventricle Right atrium and right ventricle are normal size and contractility. Aortic Valve Aortic valve is minimally thickened and fibrosed, there is no aortic stenosis or aortic insufficiency. Mitral Valve Mitral valve grossly normal, there is trace mitral regurgitation. Tricuspid Valve Tricuspid valve grossly normal, there is trace tricuspid regurgitation, tricuspid rotation jet velocity is inadequate for calculation of the right ventricular systolic pressure. Pulmonic Valve Pulmonic valve is poorly visualized. Great Vessels Aortic root is normal size. Pericardium No significant pericardial effusion noted. Conclusion 1. Normal left ventricular size, preserved left ventricular systolic function, visually estimated ejection fraction 55% with no regional wall motion abnormality, diastolic parameters are within normal range. 2. Trace mitral and tricuspid rotation. 3. No significant pericardial effusion noted. Electronically signed by : Wallace Boyce MD 10/28/2020 06:55:31
== END ==
PROVIDERS: PCP Emergency Medicine; Visit Provider Urology
DX: I25.10 Atherosclerotic heart disease of native coronary artery without angina pectoris (principal); I11.9 Hypertensive heart disease without heart failure; E78.5 Hyperlipidemia, unspecified; Z72.0 Tobacco use
CPT/HCPCS: 93306

== ENCOUNTER → 2020-11-14 10:11 | Outpatient (CLI) | payer OTHER, SELFPAY ==
--- NOTE | 2020-11-14 10:12 | MM_ITS ---
PROCEDURE: MM DIG SCREENING MAMM BI W/CAD Digital Breast Tomosynthesis Included CLINICAL INDICATION: screening xmg COMPARISON: MG DMDB DIG MAMM-DX DOUGIE from 01/10/2014 MG MM DIG SCREENING MAMM BI W/CAD from 01/09/2019 TECHNIQUE: Standard CC and MLO images and 3D Tomosynthesis was obtained. R2 CAD reviewed. FINDINGS: The breasts are heterogeneously dense which may obscure small masses. No suspicious appearing mass, malignant-appearing microcalcification, architectural distortion, or skin thickening.. Bilateral benign-appearing calcifications. No significant change IMPRESSION: Benign findings. No change with no evidence of malignancy BI-RAD Category: 2 Benign Finding FOLLOW-UP: 1 YR 1 Year Follow-up (A letter has been sent to the patient regarding results of the study.) Dictated by: Emery Momin MD 12/01/2020 11:36 Emery Momin MD in [place] 12/01/2020 11:36
--- NOTE | 2020-11-14 10:12 | US_ITS ---
PROCEDURE: US TRANSVAGINAL CLINICAL INDICATION: heavy menstruation, rule out fibroids COMPARISON: No exams were available for comparison FINDINGS: UTERUS: 9cm x 6cmx 5cm with a combined endometrial thickness of 16.3mm. Nabothian cysts are noted the largest at 1 cm. Endometrium is thickened at 16 mm. At least 2 fibroids are present 1 on the left projecting into the endometrium at 13 x 6 mm. A subserosal fibroid noted anteriorly at 1.8 x 1.3 cm LEFT OVARY: 3 x 2 x 3 cm with a volume of 6ml. RIGHT OVARY: [id number] with a volume of 5.8ml. The No cul-de-sac fluid. 2 cm right ovarian cyst. IMPRESSION: Slightly bulky uterus with at least 2 small fibroids and nabothian cysts. Dictated by: Emery Momin MD 11/17/2020 08:06 Emery Momin MD in [place] 11/17/2020 08:06
== END ==
PROVIDERS: PCP Emergency Medicine; Visit Provider Nurse Practitioner Obstetrics & Gynecology
DX: Z12.31 Encounter for screening mammogram for malignant neoplasm of breast (principal); N92.0 Excessive and frequent menstruation with regular cycle
CPT/HCPCS: 76830; 77063; 77067

== ENCOUNTER 2020-12-31 15:12 | Outpatient (RCR) | payer OTHER, SELFPAY | END 2020-12-31 16:00 | disposition home or self-care (01) | LOC: OT 15:12 | PROVIDERS: Visit Provider Orthopaedic Surgery | DX: G56.02 Carpal tunnel syndrome, left upper limb (principal) | CPT/HCPCS: 97763 ==

== ENCOUNTER → 2021-01-17 07:27 | Outpatient (CLI) | payer OTHER, SELFPAY ==
[2021-01-17 07:39] LABS: Basophils # 0.1 K/mm3 (0-0.2); Basophils % 1.1 % (0.1-2.0); Eosinophils # 0.4 K/mm3 (0.0-0.4); Eosinophils % 3.8 % (0.1-12.0); Hematocrit 45.1 % (37.0-47.0); Hemoglobin 14.9 g/dL (12.2-16.2); Lymphocytes # 2.2 K/mm3 (0.7-4.5); Lymphocytes % 21.7 % (10-50); Mean Corpuscular Hemoglobin 32.4 pg (27.0-31.2); Mean Corpuscular Volume 98.4 fl (81-99); Mean Platelet Volume 8.2 fl (7.4-10.4); Monocytes # 0.4 K/mm3 (0.1-1.0); Monocytes % 4.1 % (1.7-9.3); Neutrophils # 7.1 K/mm3 (1.8-7.8); Neutrophils % 69.3 % (37.0-80.0); Platelet Count 386 K/mm3 (142-424); Red Blood Count 4.58 M/mm3 (4.20-5.40); White Blood Count 10.3 K/mm3 (4.8-10.8)
[2021-01-17 08:25] LABS: Anion Gap 9.7 mEq/L (5-15); Blood Urea Nitrogen 16 mg/dl (7-17); Calcium 9.4 mg/dl (8.4-10.2); Carbon Dioxide 30 mmol/L (22.0-30.0); Chloride 106 mmol/L (98-107); Estimated Glomerular Filt Rate 90 ml/min (>60); GFR (African American) 109 ML/MIN (>60); Glucose 104 mg/dl (74-100); Potassium 4.7 mmoL/L (3.5-5.1); Sodium 141 mmol/L (136-145)
[2021-01-17 08:33] LABS: HCG Qualitative, Serum Negative (Negative)
== END ==
PROVIDERS: Visit Provider Nurse Practitioner Obstetrics & Gynecology
DX: Z01.818 Encounter for other preprocedural examination (principal); R10.2 Pelvic and perineal pain; D21.9 Benign neoplasm of connective and other soft tissue, unspecified; N92.0 Excessive and frequent menstruation with regular cycle
CPT/HCPCS: 36415; 80048; 84703; 85025

== ENCOUNTER → 2021-01-19 07:51 | Outpatient (CLI) | payer OTHER, SELFPAY | PROVIDERS: Visit Provider Nurse Practitioner Obstetrics & Gynecology | DX: Z01.818 Encounter for other preprocedural examination (principal); Z11.52 Encounter for screening for COVID-19; D21.9 Benign neoplasm of connective and other soft tissue, unspecified; N92.0 Excessive and frequent menstruation with regular cycle; R10.2 Pelvic and perineal pain | CPT/HCPCS: C9803; U0003; U0005 ==

== ENCOUNTER 2021-01-20 07:24 | Observation (INO) | payer OTHER, SELFPAY ==
[2021-01-13 13:53] VITALS: BMI 34.7
[2021-01-20] VITALS (22 sets, daily range): BP systolic 81–135; BP diastolic 44–81; PULSE 64–115; RESP 14–20; TEMP 36.2–43; O2SAT 93–98
[2021-01-20 07:34] LABS: Coronavirus 19, PCR Not Detected (NotDetected); Influenza A, PCR Not Detected (NotDetected); Influenza B, PCR Not Detected (NotDetected)
--- NOTE | 2021-01-20 07:42 | HMH.HP ---
*Admission Date: 01/20/21 *Chief complaint: Menorrhagia, fibroids, HGSIL *History of present illness: She is a 45-year-old lady who takes Plavix for heart disease. She has extremely heavy periods. An ultrasound showed that she had a submucosal as well as intramural fibroid. She also had a recent Pap smear that showed HGSIL. As result of the fibroids and menorrhagia we will go ahead with a laparoscopic-assisted vaginal hysterectomy and bilateral salpingectomy. [facility] History I have reviewed the patient's past medical history: Yes Medical History: Reports:: Coronary Artery Disease, Gastroesophageal Reflux Disease(GERD), Hyperlipidemia, Hypertension Denies:: Cancer, Diabetes Mellitus Type 1, Diabetes Mellitus Type 2, Internal Pacemaker, MRSA, Seizures *Have you ever received a pneumonia vaccine?: No *Have you received a flu vaccine this season?: Yes Other Medical History: Reports: Sinus Problems. Denies: Blood Transfusion Reaction Other Surgeries: Yes: No Previous Surgery, Cardiac Catheterization, Tubal Ligation, Other. 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 Review of Systems - Review of Systems Review of systems:: pertinent systems reviewed and negative unless documented below Meds Home Medications Medication Instructions Recorded Confirmed Type Atorvastatin Calcium [Lipitor 40mg 40 mg PO DAILY 01/13/21 01/20/21 History Tab] Clopidogrel Bisulfate [Plavix] 75 mg PO DAILY 01/13/21 01/20/21 History bisoproloL fumarate [Bisoprolol 5 mg PO DAILY 01/13/21 01/20/21 History Fumarate] lisinopriL [Lisinopril] 40 mg PO DAILY 01/13/21 01/20/21 History Allergies Allergy/AdvReac Type Severity Reaction Status Date / Time azithromycin AdvReac Mild stomach Verified 01/20/21 06:15 [From Zithromax Z-Abel] cramping Exam Vital signs and Labs for Last 24 Hours: Temp Pulse Resp BP Pulse Ox 98.4 F 92 H 18 135/81 96 01/20/21 06:17 01/20/21 06:17 01/20/21 06:17 01/20/21 06:17 01/20/21 06:17 - Constitutional no acute distress - *Routine HEENT Exam Head: Present: normocephalic Eye: Present: EOMI, PERRL ENT: Present: mucous membranes moist - *Routine Neck Exam Present: supple, full ROM - *Routine Respiratory Exam Absent: accessory muscle use (good air entry bilaterally), wheezes, crackles - *Routine Cardiovascular Exam Present: RRR. Absent: murmur - *Routine Abdominal Exam Present: soft, normoactive bowel sounds. Absent: tenderness, rebound, guarding, mass - *Routine Rectal Exam Rectal:: deferred - *Routine Genitalia Exam Genitalia:: normal female - *Routine Extremities Exam Present: full ROM. Absent: cyanosis, edema, calf tenderness - *Routine Skin Exam Present: intact (good color) - *Routine Neurological Exam Present: alert, oriented X3 - Routine Psychiatric Exam Present: normal affect - Detailed Rectal Exam Patient deferred: visual exam, digital exam - Detailed Exam Patient deferred: external exam, groin exam, perineal exam Assessment and Plan (1) Menorrhagia with regular cycle Status: Acute Category: Medical Code(s): N92.0 - Excessive and frequent menstruation with regular cycle (2) Intramural uterine fibroid Status: Acute Category: Medical Code(s): D25.1 - Intramural leiomyoma of uterus (3) Fibroids, submucosal Status: Acute Category: Medical Code(s): D25.0 - Submucous leiomyoma of uterus (4) HGSIL on cytologic smear of cervix Status: Acute Category: Medical Code(s): R87.613 - High grade squam
--- NOTE | 2021-01-20 09:23 | P.PN_ITS ---
[facility] Anesthesia Checklist - Patient Identification Patient Identification: Arm Band, Verbal (Name & ) - Structural Data Admitted From: Home Planned Operative [facility] Cons[facility] for Planned Operative Procedure(s) Verified: Yes Verified Documents: Surgical Consent - NPO Status Verified Time NPO: 00:00 - Chart Verification Results Verified: CBC, BMP, HCG - Additional verifications Anesthesia Reactions: No Hx Blood Transfusions: No Blood Transfusion Reaction: No - Cardiovascular Assessment Heart Sounds: S1 & S2 - Airway Assessment C-Spine Mobility Assessed: Yes TMJ Mobility Assessed: Yes Dentition: Dentures-good fit - Neurological Assessment Level of Consciousness: Awake, Alert, Appropriate - Anesthesia Plan Anesthesia Risk discussed: Yes ASA Class: II Anesthesia Type: General [facility] History Medical History: Reports:: Coronary Artery Disease, Gastroesophageal Reflux Disease(GERD), Hyperlipidemia, Hypertension Denies:: Cancer, Diabetes Mellitus Type 1, Diabetes Mellitus Type 2, Internal Pacemaker, MRSA, Seizures *Have you ever received a pneumonia vaccine?: No *Have you received a flu vaccine this season?: Yes Other Medical History: Reports: Sinus Problems. Denies: Blood Transfusion Reaction Anesthesia experience/problems:: none Other Surgeries: Yes: No Previous Surgery, Cardiac Catheterization, Tubal Ligation, Other. 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
--- NOTE | 2021-01-20 10:39 | HMH.OPNOTE ---
Date of procedure: 01/20/21 Pre-op Diagnosis:: Menorrhagia, fibroid uterus, Plavix use Post-op Diagnosis:: Menorrhagia, fibroid uterus, Plavix use Procedure performed:: Laparoscopically assisted vaginal hysterectomy, bilateral salpingectomy Surgeon:: Demetrius Chris MD Scoop Filler(s):: Melissa Le DONOR SERVICES MANAGER:: Other (Carlos Banda) Anesthesia: GETA Estimated blood loss (mL): 100 Clinical Note:: She is a 45-year-old lady who complains of extremely heavy periods. She takes Plavix for a blockage in her heart. After having discussed the risks and benefits we elected perform a laparoscopic-assisted vaginal hysterectomy and bilateral salpingectomy. She also has fibroids in the uterus. There was one fibroid intramural and another one submucosal within the uterus. After having discussed the risk and benefits elected to go ahead with surgery. Operative findings:: She had an anteverted bulky uterus. There was a 2 cm subserosal fibroid on the anterior aspect of the uterus near the fundus. Appendix appeared normal. Upper abdomen appeared normal. The deep pelvis appeared normal. The ovaries and tubes appeared normal. She had a previous tubal ligation with Falope-Rings. Operative note:: She was taken to the operating room where general anesthesia was found be adequate. She was prepped and draped in normal sterile fashion in the semilithotomy position. A weighted speculum was placed in the vagina and the anterior lip of the cervix was grasped with a tenaculum. An acorn uterine manipulator was then placed within the cervical os. I then changed gloves. I injected 10 cc of 0.5% ropivacaine around the umbilicus and made a small incision within the umbilicus. I inserted a Veress needle into the abdominal cavity. The abdominal cavity was then insufflated with carbon dioxide gas to a pressure of 20 mmHg. I then inserted an 11 mm trocar under direct vision. I injected through and through the pubic hairline, made a small incision here and inserted a 5 mm trocar under direct vision. I identified the inferior epigastric arteries on the left side, went lateral to these and injected through and through. I then made a small incision and inserted an 11 mm trocar under direct vision. A similar 11 mm trocar was placed on the right side. The left round ligament was then grasped and cut through with harmonic scalpel. This was followed by opening up the peritoneum anteriorly to the midline. I then grasped the tube on the left side and cut through this. This is followed by cutting through the left utero-ovarian ligament. I used Harmonic scalpel on the coagulation mode. I then took down the posterior aspect of the broad ligament to the level of the uterosacral ligament. I then skeletonized the uterine arteries on the left side and placed hemoclips on these. Using the harmonic scalpel on coagulation mode adjacent to the cervix I then took down these uterine arteries. I then further freed up the bladder anteriorly and laterally on the left side. I then turned my attention to the right side where I grasped the right round ligament. The right tube was adherent to the right pelvic sidewall and using harmonic scalpel I was able to free this up. I then cut through the right round ligament. I then took down the anterior peritoneum to the midline joining up with the other side. I further dissected the bladder off. The posterior aspect of the right broad ligament was then taken down with harmonic scalpel. I skeletonized the uterine arteries on the right side. I applied hemoclips to the uterine arteries and staying adjacent to the cervix on the right side I took down the uterine arteries with harmonic scalpel on coagulation mode. I further freed up the bladder. We then assured hemostasis. I then grasped the distal end of the right tube and using harmonic scalpel I cut along the mesosalpinx. The tube was removed through the 11 mm trocar site. This was only perfor
--- NOTE | 2021-01-20 10:55 | HMH.ANESI ---
[facility] Anesthesia Record Part I Intake, IV Amount: 1,200 Estimated blood loss (mL): 50 Urine output (mL): 50 Blood Pressure: 107/44 SaO2: 94 Pulse Rate: 73 Respiratory Rate: 18 Temperature: 97.2 F Patient is:: Drowsy Stable to PACU at:: 10:45
--- NOTE | 2021-01-20 11:21 | SUR.PHASEI ---
1110- report called to sen pham on OB floor at this time. 1116- pt left in stable condition with sen pham at this time.
--- NOTE | 2021-01-20 11:25 | PC.NURSE ---
PT ARRIVED TO FLOOR- POPE IN PLACE, DRAINING CLEAR/YELLOW URINE. IV INFUSING WITHOUT DIFFICULTY. LUNGS SOUNDS CTA AND BOWEL SOUNDS HYPOACTIVE. REPORTS MINIMAL PAIN. SCUDS IN PLACE. POC EXPLAINED AND PT AGREEABLE.
--- NOTE | 2021-01-20 12:37 | P.CONPHA_ITS ---
[facility] Pharmacy VTE Monitoring - Patient Demographics Admission date: 01/20/21 Report Date: 01/20/21 Time: 12:37 Allergies/Adverse Reactions: Patient Allergies azithromycin [From Zithromax Z-Abel] Adverse Reaction (Mild, Verified 01/20/21 06:15) stomach cramping Height: 1.68 m Weight: 97.522 kg Patient Problems: Current Active Problems Menorrhagia with regular cycle (Acute) Intramural uterine fibroid (Acute) Fibroids, submucosal (Acute) HGSIL on cytologic smear of cervix (Acute) - VTE Risk Was VTE Risk Assessment Performed: Yes VTE Score: 3 VTE Risk Level: Low Risk Clinical Trial Participant: No - Prophylaxis VTE Prophylaxis Ordered?: Yes Types of VTE Prophylaxis: IPCS Knee High, Pharmacological Pharmacologic Type: Enoxaparin (POST OP)
--- NOTE | 2021-01-20 12:39 | HMH.PHAINT ---
clarified home medication list using list from [facility]
--- NOTE | 2021-01-20 16:14 | HMH.ANESII ---
[facility] Anesthesia Record Part II Discharge Time: 11:15 Destination: Obstetric PACU nurse assessment reviewed?: Yes Patient Condition:: Good Anesthesia Complications:: None Swallowing reflex intact?: Yes Cyanosis?: No Blood Pressure: 119/73 Pulse Rate: 66 Temperature: 97.5 F Mental Status: Alert & Oriented Pain level:: 0 Nausea and/or vomitting:: None Intake, IV Amount: 0
--- NOTE | 2021-01-20 16:30 | PC.NURSE ---
REASSESSMENT COMPLETED AT THIS TIME. PT REPORTS INTERMITTENT PAIN TODAY- GOING TO MEDICATE NOW FOR PAIN. LUNGS REMAINS CTA AND BOWEL HYPOACTIVE. PT REPORTS GAS PAINS. PATIENT HAS TOLERATED CLEAR LIQUIDS WELL WITH SOME NAUSEA. POPE DRAINING CLEAR DARK YELLOW URINE. IV FLUIDS INFUSING WITHOUT DIFFICULTY. VITALS WNL. WEANING OXYGEN. SCUDS IN PLACE. 4 LAP SITES TO ABD- UMBILICAL ONE WITH SCANT AMOUNT OF SEROSANG DRAINAGE. NO NEEDS. CALL LIGHT WITHIN REACH.
[2021-01-20 16:34] LABS: Hematocrit 40.9 % (37.0-47.0); Hemoglobin 13.3 g/dL (12.2-16.2)
[2021-01-20 17:25] LABS: Microscopic, Urine URINE MICROSCOPIC (MICROSCOPIC)
[2021-01-20 18:06] LABS: Appearance,Urine CLEAR (Clear); Bilirubin,Urine Negative (Negative); Blood, Urine Negative (Negative); Color,Urine YELLOW (Yellow); Glucose,Urine (UA) Negative (Negative); Ketones,Urine Negative (Negative); Leukocyte Esterase,Urine Negative (Negative); Nitrate,Urine Negative (Negative); Protein,Urine 2+ (Negative); Specific Gravity, Urine 1.025 (1.005-1.030); Urobilinogen,Urine 0.2 EU/dl (0.2)
[2021-01-20 18:21] LABS: Bacteria,Urine 4+ /lpf
--- NOTE | 2021-01-20 21:00 | PC.NURSE ---
Pt assisted to the bathroom with x1 assistance. pt attempted to void but was unable to at this time, Pt helped back into bed will try again at a later time
[2021-01-21] VITALS: BP 131/67; PULSE 98; RESP 18; TEMP 36.6; O2SAT 95
[2021-01-21 04:00] VITALS: BP 136/85; PULSE 86; RESP 18; TEMP 36.7; O2SAT 95
--- NOTE | 2021-01-21 04:30 | PC.NURSE ---
Pt has slept in intervals this shift. BLT lungs CTA, Bowel sounds present in all 4 quadrants. Pt is on RA, IV patent and infusing well. Pt abdominal lap site dressings C/D/I. Pt up with standby assist to the bathroom. Scant amount of vaginal bleeding/discharge on pad. Pt medicated for pain per MAR. VSS. Pt denies SOA, n/v,headache or pain at this time
[2021-01-21 07:03] LABS: Basophils # 0.1 K/mm3 (0-0.2); Basophils % 0.3 % (0.1-2.0); Eosinophils % 0.1 % (0.1-12.0); Hematocrit 41.8 % (37.0-47.0); Hemoglobin 13.5 g/dL (12.2-16.2); Lymphocytes % 14.7 % (10-50); Mean Corpuscular HGB Conc 32.2 g/dL (31.8-35.4); Mean Corpuscular Hemoglobin 32.1 pg (27.0-31.2); Mean Corpuscular Volume 99.7 fl (81-99); Mean Platelet Volume 8.6 fl (7.4-10.4); Monocytes # 1.1 K/mm3 (0.1-1.0); Monocytes % 5.6 % (1.7-9.3); Neutrophils # 16.1 K/mm3 (1.8-7.8); Neutrophils % 79.5 % (37.0-80.0); Platelet Count 420 K/mm3 (142-424); Red Cell Distribution Width 13.1 % (11.5-17.5); White Blood Count 20.2 K/mm3 (4.8-10.8)
[2021-01-21 07:16] LABS: MANUAL DIFFERENTIAL MANUAL DIFFERENTIAL (MANUAL DIFF)
[2021-01-21 07:18] LABS: Anion Gap 10.9 mEq/L (5-15); Blood Urea Nitrogen 11 mg/dl (7-17); Carbon Dioxide 29 mmol/L (22.0-30.0); Chloride 103 mmol/L (98-107); Creatinine Clearance Estimated 155 mL/min (50-200); Estimated Glomerular Filt Rate 90 ml/min (>60); GFR (African American) 109 ML/MIN (>60); Glucose 94 mg/dl (74-100); Potassium 3.9 mmoL/L (3.5-5.1); Sodium 139 mmol/L (136-145)
[2021-01-21 07:39] LABS: Lymphocytes % 10 % (10-50); Macrocytosis 1+; Monocytes % 5 % (2-9); Neutrophils % 85 % (42-76); Platelet Estimate Normal; Total Cells Counted 100
[2021-01-21 08:00] VITALS: BP 115/70; PULSE 90; RESP 20; TEMP 36.9; O2SAT 95
[2021-01-21 08:15] VITALS: O2SAT 95
--- NOTE | 2021-01-21 08:15 | PC.NURSE ---
assessment completed at this time. lungs cta and bowels hyperactive. pt reports she is passing gas. iv saline locked. lap sites c/d/i, umbilical site has small amount of serosang drainage. voiding well. no edema. uses pillow to splint. no current needs.
--- NOTE | 2021-01-21 09:16 | PC.NURSE ---
dr. pacheco at bedside.
--- NOTE | 2021-01-21 10:34 | HMH.DCSUM ---
General - General Admission date:: 01/20/21 Discharge date: 01/21/21 HPI HPI: She is a 45-year-old lady who takes Plavix for heart disease. She has extremely heavy periods. An ultrasound showed that she had a submucosal as well as intramural fibroid. She also had a recent Pap smear that showed HGSIL. As result of the fibroids and menorrhagia we will go ahead with a laparoscopic-assisted vaginal hysterectomy and bilateral salpingectomy. Hospital Course Hospital Course: On January 20 she underwent a laparoscopic-assisted vaginal hysterectomy and bilateral salpingectomy. She has done well postoperatively and has remained afebrile throughout her hospitalization. She is eating and drinking and ambulating. She is voiding well. She has not had a bowel movement. She denies any nausea or vomiting. She denies any chest pain or shortness of breath. She denies any calf tenderness. Her blood work is normal. She has a slight white count but this would not be abnormal since she just underwent surgery. Her creatinine and BUN are normal as well. Rhogam Administration: Not Indicated Objective Vital signs: Temp Pulse Resp BP Pulse Ox 98.5 F 90 20 115/70 95 01/21/21 08:00 01/21/21 08:00 01/21/21 08:00 01/21/21 08:00 01/21/21 08:15 no acute distress - *Routine HEENT Exam Head: Present: normocephalic Eye: Present: EOMI, PERRL ENT: Present: mucous membranes moist - *Routine Respiratory Exam Present: CTA bilaterally - *Routine Cardiovascular Exam Present: RRR - *Routine Abdominal Exam Present: soft, normoactive bowel sounds. Absent: tenderness Comments: Her incisions are clean and dry. - *Routine Extremities Exam Absent: cyanosis, clubbing, edema Results Labs on day of discharge: Labs from last 24 hours 01/21/21 01/21/21 01/20/21 06:19 06:19 16:05 WBC 20.2 H* RBC 4.20 Hgb 13.5 13.3 Hct 41.8 40.9 MCV 99.7 H MCH 32.1 H MCHC 32.2 RDW 13.1 Plt Count 420 MPV 8.6 Neut % (Auto) 79.5 Lymph % (Auto) 14.7 Toole % (Auto) 5.6 Eos % (Auto) 0.1 Baso % (Auto) 0.3 Neut # (Auto) 16.1 H Lymph # (Auto) 3.0 Toole # (Auto) 1.1 H Eos # (Auto) 0.0 Baso # (Auto) 0.1 Total Counted 100 Neutrophils % (Manual) 85 H Lymphocytes % (Manual) 10 Monocytes % (Manual) 5 Platelet Estimate Normal Macrocytosis 1+ Sodium 139 Potassium 3.9 Chloride 103 Carbon Dioxide 29 Anion Gap 10.9 BUN 11 Creatinine 0.70 Estimated Creat Clear 155 Estimated GFR 90 Est GFR ( Amer) 109 Glucose 94 Calcium 9.0 Urine Color Urine Appearance Urine pH Ur Specific [place] Urine Protein Urine Glucose (UA) Urine Ketones Urine Blood Urine Nitrate Urine Bilirubin Urine Urobilinogen Ur Leukocyte Esterase Urine WBC Ur Squamous Epith Cells Urine Bacteria 01/20/21 10:17 WBC RBC Hgb Hct MCV MCH MCHC RDW Plt Count MPV Neut % (Auto) Lymph % (Auto) Toole % (Auto) Eos % (Auto) Baso % (Auto) Neut # (Auto) Lymph # (Auto) Toole # (Auto) Eos # (Auto) Baso # (Auto) Total Counted Neutrophils % (Manual) Lymphocytes % (Manual) Monocytes % (Manual) Platelet Estimate Macrocytosis Sodium Potassium Chloride Carbon Dioxide Anion Gap BUN Creatinine Estimated Creat Clear Estimated GFR Est GFR ( Amer) Glucose Calcium Urine Color Yellow Urine Appearance Clear Urine pH 8.0 Ur Specific [place] 1.025 Urine Protein 2+ Urine Glucose (UA) Negative Urine Ketones Negative Urine Blood Negative Urine Nitrate Negative Urine Bilirubin Negative Urine Urobilinogen 0.2 Ur Leukocyte Esterase Negative Urine WBC 3-5 Ur Squamous Epith Cells 3-5 Urine Bacteria 4+ DS: Diagnosis - Discharge Diagnosis (1) Menorrhagia with regular cycle Status: Acute (2) Intramural uterine fibroid
== END 2021-01-21 11:35 | disposition home or self-care (01) ==
LOC: OB 07:25
PROVIDERS: Admitting Provider Nurse Practitioner Obstetrics & Gynecology; PCP Emergency Medicine; Visit Provider Nurse Practitioner Obstetrics & Gynecology
PROC: 0UT9FZZ Resection of Uterus, Via Natural or Artificial Opening With Percutaneous Endoscopic Assistance (ICD-10-PCS; CPT 58552; principal; 2021-01-20 07:30)
DX: D25.1 Intramural leiomyoma of uterus (principal); D25.0 Submucous leiomyoma of uterus; R87.613 High grade squamous intraepithelial lesion on cytologic smear of cervix (HGSIL); N92.0 Excessive and frequent menstruation with regular cycle; E78.5 Hyperlipidemia, unspecified; I25.10 Atherosclerotic heart disease of native coronary artery without angina pectoris; I10 Essential (primary) hypertension; F17.210 Nicotine dependence, cigarettes, uncomplicated; Z79.01 Long term (current) use of anticoagulants; Z79.899 Other long term (current) drug therapy; Z20.822 Contact with and (suspected) exposure to COVID-19
CPT/HCPCS: 58552; 36415; 80048; 81001; 85007; 85014; 85018; 85025; 87086; 96374; C9803; G0378; J0131; J2405; J2710; U0003; U0005

== ENCOUNTER → 2021-03-13 09:29 | Outpatient (CLI) | payer OTHER, SELFPAY ==
[2021-03-13 09:53] LABS: Basophils # 0.1 K/mm3 (0-0.2); Basophils % 0.7 % (0.1-2.0); Eosinophils # 0.6 K/mm3 (0.0-0.4); Eosinophils % 4.9 % (0.1-12.0); Hematocrit 46.2 % (37.0-47.0); Hemoglobin 14.9 g/dL (12.2-16.2); Mean Corpuscular HGB Conc 32.3 g/dL (31.8-35.4); Mean Corpuscular Hemoglobin 31.7 pg (27.0-31.2); Mean Corpuscular Volume 98.3 fl (81-99); Mean Platelet Volume 8.3 fl (7.4-10.4); Monocytes # 0.7 K/mm3 (0.1-1.0); Monocytes % 5.8 % (1.7-9.3); Neutrophils # 7.5 K/mm3 (1.8-7.8); Neutrophils % 63.7 % (37.0-80.0); Platelet Count 455 K/mm3 (142-424); White Blood Count 11.8 K/mm3 (4.8-10.8)
== END ==
PROVIDERS: PCP Emergency Medicine; Visit Provider Nurse Practitioner Obstetrics & Gynecology
DX: G89.18 Other acute postprocedural pain (principal); R10.9 Unspecified abdominal pain
CPT/HCPCS: 36415; 85025

== ENCOUNTER → 2021-03-18 09:02 | Outpatient (CLI) | payer OTHER, SELFPAY ==
--- NOTE | 2021-03-18 09:02 | US_ITS ---
FINAL REPORT CLINICAL HISTORY: RUQ pain, nausea X 1 week FINDINGS: RIGHT UPPER QUADRANT ULTRASOUND: Ultrasound images of right upper quadrant were obtained. Limited images of the pancreas are obscured by bowel gas. The liver parenchyma is normal echogenicity. The gallbladder is well-visualized and the wall appears normal. There are no gallstones. The common duct measures 5 mm. Limited images of right kidney are unremarkable. IMPRESSION: Normal right upper quadrant ultrasound. Reviewed, Interpreted and Dictated by Jabier Bingham III, MD Transcribed by Makayla Rowland Authenticated by Jabier Bingham III, MD on 03/18/2021 10:22:[address] [facility]
== END ==
PROVIDERS: PCP Emergency Medicine; Visit Provider Nurse Practitioner Obstetrics & Gynecology
DX: R10.11 Right upper quadrant pain (principal)
CPT/HCPCS: 76705

== ENCOUNTER → 2021-06-03 12:48 | Outpatient (CLI) | payer OTHER, SELFPAY ==
--- NOTE | 2021-06-03 12:48 | CT_ITS ---
FINAL REPORT CLINICAL HISTORY: lung nodules follow up COMPARISON: October 14, 2020 FINDINGS: Axial CT images of the chest were obtained with contrast. Coronal reformatted images were also obtained. This study was performed with techniques to keep radiation doses as low as reasonably achievable, (ALARA). Individualized dose reduction techniques using automated exposure control or adjustment of mA and/or KV according to the patient's size were employed. There is no evidence of mediastinal or hilar mass or adenopathy.No axillary mass or adenopathy is identified. On lung window images, there are mild changes of emphysema. There is mild scarring. There are 2 nodules identified in the lingula. The larger nodule is more laterally located and measures 8 mm, stable. There is also a stable 5 mm nodule in the lingula. Limited images of the upper abdomen reveal gallbladder wall thickening which is nonspecific. IMPRESSION: Stable nodules in the lingula. Nonspecific gallbladder wall thickening. Reviewed, Interpreted and Dictated by Jabier Bingham III, MD Transcribed by Desire Dejesus Authenticated by Jabier Bingham III, MD on 06/03/2021 02:25:[address] [facility]
== END ==
PROVIDERS: PCP Emergency Medicine; Visit Provider Physician Assistant
DX: R91.8 Other nonspecific abnormal finding of lung field (principal); I25.10 Atherosclerotic heart disease of native coronary artery without angina pectoris; I11.9 Hypertensive heart disease without heart failure; E78.2 Mixed hyperlipidemia; E66.9 Obesity, unspecified; R94.31 Abnormal electrocardiogram [ECG] [EKG]; Z72.0 Tobacco use; Z68.34 Body mass index [BMI] 34.0-34.9, adult
CPT/HCPCS: 71260; Q9967

== ENCOUNTER → 2021-08-03 07:56 | Outpatient (CLI) | payer OTHER, SELFPAY ==
[2021-08-03 08:04] LABS: MANUAL DIFFERENTIAL MANUAL DIFFERENTIAL (MANUAL DIFF)
[2021-08-03 08:24] LABS: Basophils # 0.2 K/mm3 (0-0.2); Eosinophils # 0.3 K/mm3 (0.0-0.4); Eosinophils % 3.2 % (0.1-12.0); Hematocrit 44.9 % (37.0-47.0); Hemoglobin 14.6 g/dL (12.2-16.2); Lymphocytes # 2.7 K/mm3 (0.7-4.5); Lymphocytes % 25.2 % (10-50); Mean Corpuscular HGB Conc 32.5 g/dL (31.8-35.4); Mean Corpuscular Hemoglobin 31.9 pg (27.0-31.2); Mean Corpuscular Volume 98.1 fl (81-99); Mean Platelet Volume 8.6 fl (7.4-10.4); Monocytes # 0.7 K/mm3 (0.1-1.0); Monocytes % 6.2 % (1.7-9.3); Neutrophils # 6.8 K/mm3 (1.8-7.8); Neutrophils % 63.4 % (37.0-80.0); Platelet Count 397 K/mm3 (142-424); Red Blood Count 4.58 M/mm3 (4.20-5.40); Red Cell Distribution Width 13.3 % (11.5-17.5); White Blood Count 10.7 K/mm3 (4.8-10.8)
--- NOTE | 2021-08-03 08:26 | ECG_ITS ---
APPROVED REPORT Exam: Resting ECG HR:59 bpm ECG Measurements Heart Rate [address] 187 P 15 QRSd 98 QRS -5 QT 372 T 10 QTc 372 Conclusion SINUS BRADYCARDIA LOW QRS VOLTAGE IN PRECORDIAL LEADS [QRS DEFLECTION < 1.0 mV IN CHEST LEADS] INCOMPLETE RIGHT BUNDLE BRANCH BLOCK [90+ ms QRS DURATION, TERMINAL R IN V1/V2, 40+ ms S IN I/aVL/V4/V5/V6] MINIMAL ST DEPRESSION [0.025+ mV ST DEPRESSION] BORDERLINE ECG UNCONFIRMED REPORT Electronically signed by : Bon Mckay MD 08/04/2021 18:42:36
[2021-08-03 09:09] LABS: Eosinophils % 1 % (0-3); Lymphocytes % 22 % (10-50); Monocytes % 7 % (2-9); Neutrophils % 70 % (42-76); Total Cells Counted 100
[2021-08-03 09:11] LABS: Platelet Estimate Normal; Stomatocytes 1+
[2021-08-03 09:36] LABS: Chloride 106 mmol/L (98-107); Potassium 4.4 mmoL/L (3.5-5.1); Sodium 137 mmol/L (136-145)
[2021-08-03 09:39] LABS: Blood Urea Nitrogen 13 mg/dl (7-17); Estimated Glomerular Filt Rate 90 ml/min (>60); GFR (African American) 109 ML/MIN (>60)
[2021-08-03 09:40] LABS: Anion Gap 12.4 mEq/L (5-15); Calcium 9.8 mg/dl (8.4-10.2); Carbon Dioxide 23 mmol/L (22.0-30.0); Glucose 97 mg/dl (74-100)
[2021-08-09 12:10] LABS: D001-IgE D pteronyssinus <0.10 kU/L (Class 0); D002-IgE D farinae <0.10 kU/L (Class 0); E001-IgE Cat Dander <0.10 kU/L (Class 0); E005-IgE Dog Dander <0.10 kU/L (Class 0); E072-IgE Mouse Urine <0.10 kU/L (Class 0); G002-IgE Bermuda Grass <0.10 kU/L (Class 0); G006-IgE Timothy Grass <0.10 kU/L (Class 0); I006-IgE Cockroach, German <0.10 kU/L (Class 0); Immunoglobulin E, Total 137 IU/mL (6-495); M001-IgE Penicillium chrysogen <0.10 kU/L (Class 0); M002-IgE Cladosporium herbarum <0.10 kU/L (Class 0); M003-IgE Aspergillus fumigatus <0.10 kU/L (Class 0); M006-IgE Alternaria alternata <0.10 kU/L (Class 0); T001-IgE Maple/Box Elder <0.10 kU/L (Class 0); T003-IgE Common Silver Birch <0.10 kU/L (Class 0); T006-IgE Cedar, Mountain <0.10 kU/L (Class 0); T007-IgE Oak, White <0.10 kU/L (Class 0); T008-IgE Elm, American <0.10 kU/L (Class 0); T010-IgE Walnut <0.10 kU/L (Class 0); T011-IgE Maple Leaf Sycamore <0.10 kU/L (Class 0); T014-IgE Cottonwood <0.10 kU/L (Class 0); T015-IgE Ash, White <0.10 kU/L (Class 0); T022-IgE Pecan, Hickory <0.10 kU/L (Class 0); T070-IgE White Mulberry <0.10 kU/L (Class 0); W001-IgE Ragweed, Short <0.10 kU/L (Class 0); W011-IgE Thistle, Russian <0.10 kU/L (Class 0); W014-IgE Pigweed, Common <0.10 kU/L (Class 0); W018-IgE Sheep Sorrel <0.10 kU/L (Class 0)
== END ==
PROVIDERS: PCP Emergency Medicine; Visit Provider Otolaryngology
DX: Z01.818 Encounter for other preprocedural examination (principal); Z20.822 Contact with and (suspected) exposure to COVID-19; H65.92 Unspecified nonsuppurative otitis media, left ear; H72.92 Unspecified perforation of tympanic membrane, left ear
CPT/HCPCS: 36415; 80048; 82785; 85007; 85014; 85018; 85048; 85049; 86003; 93005; C9803; U0003; U0005

== ENCOUNTER 2021-08-05 07:24 | Day surgery (SDC) | payer OTHER, SELFPAY ==
[2021-08-03 12:04] VITALS: BMI 33.3
[2021-08-05 07:41] VITALS: BP 133/88; PULSE 71; RESP 18; TEMP 37.2; O2SAT 97
--- NOTE | 2021-08-05 08:59 | P.PN_ITS ---
[facility] Anesthesia Checklist - Patient Identification Patient Identification: Arm Band - Structural Data Admitted From: Home Planned Operative Procedure/s: Left Tympanotomy with Tube Placement Consent for Planned Operative Procedure(s) Verified: Yes Verified Documents: Surgical Consent, History and Physical - NPO Status Verified Time NPO: 00:00 - Additional verifications Anesthesia Reactions: No Hx Blood Transfusions: No Blood Transfusion Reaction: No - Airway Assessment C-Spine Mobility Assessed: Yes (mp2) TMJ Mobility Assessed: Yes Dentition: Good Dentition (upper dentures) - Neurological Assessment Level of Consciousness: Awake, Alert - Anesthesia Plan Anesthesia Risk discussed: Yes Anesthesia Plan: Verified ASA Class: II Anesthesia Type: General [facility] History Medical History: Reports:: Coronary Artery Disease, Gastroesophageal Reflux Disease(GERD), Hyperlipidemia, Hypertension Denies:: Cancer, Diabetes Mellitus Type 1, Diabetes Mellitus Type 2, Internal Pacemaker, MRSA, Seizures *Have you ever received a pneumonia vaccine?: No *Have you received a flu vaccine this season?: Yes Other Medical History: Reports: Sinus Problems. Denies: Blood Transfusion Reaction Anesthesia experience/problems:: nac Other Surgeries: Yes: Cardiac Catheterization, Tubal Ligation, Other. 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
[2021-08-05 11:41] VITALS: BP 105/49; PULSE 72; RESP 18; TEMP 36.9; O2SAT 96
--- NOTE | 2021-08-05 11:42 | HMH.OPNOTE ---
Date of procedure: 08/05/21 Pre-op Diagnosis:: Chronic serous otitis media left ear Post-op Diagnosis:: Chronic serous otitis media left ear Procedure performed:: Tympanostomy and tube placement left ear Surgeon:: Teddy Nobles MD [employer] OFFICER:: Other Anesthesia: GETA Estimated blood loss (mL): 0 Operative findings:: Mucoid middle ear effusion left Operative note:: The patient was brought to the operating room and after adequate general anesthesia the left ear was draped in the usual sterile fashion and operating microscope employed to visualize the tympanic membrane. Tympanostomy was made in the anterior inferior quadrant incorporating the existing pinpoint perforation. Suction was employed to clear the middle ear space of effusion and then a T-tube placed and Ciprodex drops applied and the procedure concluded. All counts correct. Blood loss 0. Patient was sent to recovery in stable condition. Condition: stable Disposition: PACU Complications:: none
[2021-08-05 11:56] VITALS: BP 122/66; PULSE 64; RESP 18; O2SAT 97
[2021-08-05 12:11] VITALS: BP 119/70; PULSE 68; RESP 16; O2SAT 97
== END 2021-08-05 12:15 | disposition home or self-care (01) ==
LOC: OR 07:25
PROVIDERS: PCP Emergency Medicine; Visit Provider Otolaryngology
PROC: (CPT 69436; principal; 2021-08-05 09:45)
DX: H65.22 Chronic serous otitis media, left ear (principal)
CPT/HCPCS: 69436; J2405

== ENCOUNTER 2021-08-30 08:02 | Emergency (ER) | payer OTHER, SELFPAY ==
[2021-08-30 08:39] VITALS: BP 131/78; PULSE 78; RESP 16; TEMP 36.9; O2SAT 95; BMI 33.5
--- NOTE | 2021-08-30 08:52 | HMH.EDUTC ---
[facility] [place] Clinical Impression: Sinusitis Qualifiers: Sinusitis location: unspecified location Chronicity: acute Recurrence: non-recurrent Qualified Code(s): J01.90 - Acute sinusitis, unspecified Disposition: Home, Self-Care Condition on Discharge: Good Instructions: DI for Sinusitis Additional Instructions: Drink plenty of fluids. Take tylenol or ibuprofen for pain or fever. Take the medications as directed. Follow up with your regular doctor. GO TO THE ER FOR ANY WORSENING SYMPTOMS Throw your tooth brush away and get a new one. Quarantine until you know the results of your covid-19 test. Notify your school or workplace of your results and follow their instructions regarding return to work/school. The cough medication (promethazine dm) will make you drowsy, so don't drive or operate heavy machinery after taking it. Prescriptions: Benzonatate [Benzonatate 100mg cap] 100 mg PO TIDP PRN #30 cap PRN Reason: Cough Transmission Status: Received by [id number] methylPREDNISolone [Medrol] 4 mg PO DIRECTED 6 Days #21 packet Transmission Status: Received by [id number] Cefdinir [Omnicef 300mg Capsule] 300 mg PO BID #20 cap Transmission Status: Received by [id number] Referrals: Clifton Armstrong MD [Primary Care Provider] - Medical Decision Making - Medical Records Medical records reviewed: No: I reviewed the patient's medical records. - Johnson Inquiry Pt receiving controlled substance: No Vital Signs: 08/30/21 08:39 08/30/21 09:24 Temperature 98.4 F 98.4 F Temperature Source Oral Pulse Rate 78 Pulse Rate [Left] 78 Respiratory Rate 16 16 Blood Pressure 131/78 Blood Pressure [Right Arm] 131/78 Blood Pressure Mean [Right Arm] 95 02 Sat by Pulse Oximetry 95 [facility] [place] - General Stated complaint: cough, congestion Time Seen by Provider: 08/30/21 08:40 - History of Present Illness Provider Complaint: she c/o sinus congestion and scratchy sore throat and fever for the past 2 days. - Related Data Home Medications Medication Instructions Recorded Confirmed Aspirin 81 mg PO DAILY 08/03/21 08/05/21 Atorvastatin Calcium [Lipitor 40mg 40 mg PO DAILY 08/03/21 08/05/21 Tab] bisoproloL fumarate [Bisoprolol 5 mg PO DAILY 08/03/21 08/05/21 Fumarate] estradioL [Estradiol] 2 mg PO DAILY 08/03/21 08/05/21 polyethylene glycoL 3350 17 g PO DAILY 08/03/21 08/05/21 [Polyethylene Glycol 3350] Previous Rx's Medication Instructions Recorded Benzonatate [Benzonatate 100mg 100 mg PO TIDP PRN #30 cap 08/30/21 cap] Cefdinir [Omnicef 300mg Capsule] 300 mg PO BID #20 cap 08/30/21 methylPREDNISolone [Medrol] 4 mg PO DIRECTED 6 Days #21 08/30/21 packet Allergies Allergy/AdvReac Type Severity Reaction Status Date / Time azithromycin AdvReac Mild stomach Verified 08/30/21 08:53 [From Zithromax Z-Abel] cramping [facility] History - Hepatitis A Screen Attestation statement:: This patient has been screened for Hepatitis A risk factors. I have reviewed the patient's past medical history: Yes Medical History: Reports:: Coronary Artery Disease, Gastroesophageal Reflux Disease(GERD), Hyperlipidemia, Hypertension Denies:: Cancer, Diabetes Mellitus Type 1, Diabetes Mellitus Type 2, Internal Pacemaker, MRSA, Seizures Other Medical History: Reports: Sinus Problems. Denies: Blood Transfusion Reaction Other Surgeries: Yes: No Previous Surgery, Cardiac Catheterization, Tubal Ligation, Other. No: Pacemaker Amputation: No Fractures: No - Social History Smoking Status: Current every day smoker Tobacco Type: cigarettes # Packs/Day (cigarettes): 1 #Yrs smoked (if former smoker): 15 Alcohol Intake: never Alcohol Intake Frequency:: other Substance Use Type: denies use Occupational Status: employed Housing: house Household Members: significant other Family Hx:: No significant family history Comment: Brother-
[2021-08-30 09:24] VITALS: BP 131/78; PULSE 78; RESP 16; TEMP 36.9
== END 2021-08-30 09:25 | disposition home or self-care (01) ==
PROVIDERS: Emergency Provider Nurse Practitioner Family; PCP Emergency Medicine
DX: J01.90 Acute sinusitis, unspecified (principal)
CPT/HCPCS: 99212; G0463

== ENCOUNTER → 2022-02-19 09:38 | Outpatient (CLI) | payer OTHER, SELFPAY ==
[2022-02-19 09:41] VITALS: BMI 34.7
== END ==
PROVIDERS: PCP Emergency Medicine; Visit Provider Nurse Practitioner
DX: J06.9 Acute upper respiratory infection, unspecified (principal)
CPT/HCPCS: J0696

== ENCOUNTER 2022-03-14 12:22 | Emergency (ER) | payer OTHER, SELFPAY ==
[2022-03-14 12:38] VITALS: BP 163/79; PULSE 84; RESP 16; TEMP 36.6; O2SAT 98; BMI 33.6
[2022-03-14 13:00] VITALS: BP 131/83; PULSE 76; O2SAT 97
--- NOTE | 2022-03-14 13:01 | CT_ITS ---
PROCEDURE INFORMATION: Exam: CT Abdomen And Pelvis With Contrast Exam date and time: 03/14/2022 1:46 PM Age: 46 years old Clinical indication: Abdominal pain; Epigastric; Additional info: Abd pain TECHNIQUE: Imaging protocol: Computed tomography of the abdomen and pelvis with contrast. Radiation optimization: All CT scans at this facility use at least one of these dose optimization techniques: automated exposure control; mA and/or kV adjustment per patient size (includes targeted exams where dose is matched to clinical indication); or iterative reconstruction. Contrast material: ISOVUE; Contrast volume: 75 ml; Contrast route: IV; COMPARISON: CT ABDOMEN PELVIS W CON 11/13/2019 3:56 PM FINDINGS: Lungs: 5 mm calcified granuloma in the left lingula. No other nodules, airspace consolidation, or pleural effusions. Liver: Normal. No mass. Gallbladder and bile ducts: Normal. No calcified stones. No ductal dilation. Pancreas: Normal. No ductal dilation. Spleen: Spleen has calcified granulomas and no mass or surrounding fluid. Adrenal glands: Normal. No mass. Kidneys and ureters: Normal. No hydronephrosis, calcified stones, or masses. Stomach and bowel: No intestinal masses, bowel wall thickening, or abnormal luminal dilatation. Diverticula are present in the descending and sigmoid colon without evidence of diverticulitis. Appendix: No evidence of appendicitis. Intraperitoneal space: No free air. No masses or significant fluid collection. Vasculature: No abdominal aortic aneurysm. No other significant abnormalities. Lymph nodes: No enlarged lymph nodes. Urinary bladder: No significant wall thickening. Reproductive: Uterus is surgically absent. No adnexal masses. Right ovary has a 2.4 cm cyst. No adnexal masses. Bones/joints: No acute fracture or bone lesions. Soft tissues: No masses or other abnormalities. IMPRESSION: 1. Diverticulosis in the sigmoid and descending colon without evidence diverticulitis. 2. No acute abnormalities in the abdomen and pelvis. 3. Hysterectomy changes.
--- NOTE | 2022-03-14 13:14 | PC.NURSE ---
PT HAS HAD A HYSTERECTOMY
[2022-03-14 13:19] LABS: Basophils # 0.2 K/mm3 (0-0.2); Basophils % 1.3 % (0.1-2.0); Eosinophils # 0.5 K/mm3 (0.0-0.4); Eosinophils % 3.4 % (0.1-12.0); Hematocrit 44.2 % (37.0-47.0); Hemoglobin 14.7 g/dL (12.2-16.2); Lymphocytes % 28.5 % (10-50); Mean Corpuscular HGB Conc 33.4 g/dL (31.8-35.4); Mean Corpuscular Hemoglobin 31.6 pg (27.0-31.2); Mean Corpuscular Volume 94.6 fl (81-99); Mean Platelet Volume 8.4 fl (7.4-10.4); Monocytes # 0.8 K/mm3 (0.1-1.0); Monocytes % 5.4 % (1.7-9.3); Neutrophils # 8.7 K/mm3 (1.8-7.8); Neutrophils % 61.5 % (37.0-80.0); Platelet Count 404 K/mm3 (142-424); Red Blood Count 4.67 M/mm3 (4.20-5.40); Red Cell Distribution Width 13.3 % (11.5-17.5); White Blood Count 14.1 K/mm3 (4.8-10.8)
[2022-03-14 13:20] LABS: Microscopic, Urine URINE MICROSCOPIC (MICROSCOPIC)
[2022-03-14 13:22] LABS: Appearance,Urine CLOUDY (Clear); Blood, Urine Negative (Negative); Color,Urine YELLOW (Yellow); Glucose,Urine (UA) Negative (Negative); Ketones,Urine Negative (Negative); Leukocyte Esterase,Urine Negative (Negative); Nitrate,Urine Negative (Negative); PH,Urine 5.5 (5.0-8.5); Protein,Urine Negative (Negative); Specific Gravity, Urine >= 1.030 (1.005-1.030); Urobilinogen,Urine 0.2 EU/dl (0.2)
[2022-03-14 13:23] LABS: Chloride 102 mmol/L (98-107)
[2022-03-14 13:24] LABS: Potassium 3.9 mmoL/L (3.5-5.1); Sodium 136 mmol/L (136-145)
[2022-03-14 13:26] LABS: Alanine Aminotransferase 27 U/L (12-78); Alkaline Phosphatase 78 U/L (38-126); Anion Gap 11.9 mEq/L (5-15); Aspartate Amino Transferase 30 U/L (14-36); Blood Urea Nitrogen 12 mg/dl (7-17); Carbon Dioxide 26 mmol/L (22.0-30.0); Creatinine Clearance Estimated 153 mL/min (50-200); Estimated Glomerular Filt Rate 90 ml/min (>60); GFR (African American) 109 ML/MIN (>60); Lipase 83 U/L (23-300)
[2022-03-14 13:27] LABS: Albumin Level 4.6 g/dl (3.5-5.0); Albumin/Globulin Ratio 1.5 (1.1-1.8); Calcium 9.1 mg/dl (8.4-10.2); Glucose 93 mg/dl (74-100); Total Protein,Serum 7.6 g/dl (6.3-8.2)
[2022-03-14 13:29] LABS: Bilirubin,Urine 1+ (Negative)
[2022-03-14 13:37] LABS: Bacteria,Urine 2+ /lpf; WBC,Urine Occasional #/hpf (0-3)
[2022-03-14 14:02] VITALS: BP 129/78; PULSE 70; O2SAT 99
--- NOTE | 2022-03-14 14:11 | HMH.EDGENADL ---
Discharge Plan Disposition Patient Disposition: Home, Self-Care Condition: Good Prescriptions Prescriptions: New ondansetron 4 mg tablet,disintegrating 4 mg PO Q8H PRN (Reason: nausea and vomiting) Qty: 10 0RF No Action lisinopril 40 mg tablet 40 mg PO DAILY bisoprolol fumarate 5 mg tablet See Rx Instructions .ROUTE .COMPLEX Qty: 90 3RF Dose Instruction: Take 1 tablet by mouth once daily Rx Instructions: Take 1 tablet by mouth once daily benzonatate 100 MG capsule 100 mg PO TIDP PRN (Reason: Cough) Qty: 30 0RF cefdinir 300 MG capsule 300 mg PO BID Qty: 20 0RF aspirin 81 MG tablet,chewable 81 mg PO DAILY atorvastatin 40 MG tablet 40 mg PO DAILY estradiol 2 MG tablet 2 mg PO DAILY polyethylene glycol 3350 238 GM powder 17 g PO DAILY Referrals Follow up/Referrals: Clifton Armstrong MD [Primary Care Provider] - See instructions Activity Restrictions/Add. Instructions Additional Instructions/Restrictions: Ibuprofen as needed for pain. Zofran as needed for nausea. Additional instructions for VOMITING/DIARRHEA: See your physician as soon as possible for further evaluation. Drink plenty of fluids. Return immediately if severe abdominal pain, uncontrollable vomiting, shortness of breath, fever, bloody diarrhea, vomiting of blood or abdominal distention. Clinical Impressions Clinical Impression: Enteritis, Abdominal pain Instructions Patient Instructions: DI for Acute Abdominal Pain, DI for Enteritis Discharge ED Provider: Zak Rizzo General Adult HPI General Chief complaint: Abdominal Pain Stated complaint: STOMACH PAIN Time Seen by Provider: 03/14/22 14:03 Mode of Arrival: Ambulatory Source of Information: Patient Limitations: No Limitations Description of Symptoms (Recalled from ER Triage Doc. by RN): pt comes in with c/o stomach pain that began yesterday after eating. pt complains of dy heaving, diarrhea, associated with lower back pain. pt states she has been told she has sludge in her gallbladder. History of Present Illness HPI narrative: Patient states that since yesterday she has had intermittent diffuse abdominal pain. She has dry heaves and yesterday had copious diarrhea. She says more than 10 episodes of diarrhea without blood. Last episode of diarrhea was about 11 PM last night. She is still getting abdominal pains today. No recent travel, antibiotics, or exposures. She has had a partial hysterectomy in the past, no other abdominal surgeries. Related Data Home Medications Medication Instructions Recorded Confirmed aspirin 81 mg chewable tablet 81 mg PO DAILY heart health 08/03/21 11/17/21 atorvastatin 40 mg tablet 40 mg PO DAILY hld 08/03/21 11/17/21 estradiol 2 mg tablet 2 mg PO DAILY hormones 08/03/21 11/17/21 polyethylene glycol 3350 17 17 g PO DAILY bowels 08/03/21 11/17/21 gram/dose oral powder lisinopril 40 mg tablet 40 mg PO DAILY 11/17/21 11/17/21 Previous Rx's Medication Instructions Recorded benzonatate 100 mg capsule 100 mg PO TIDP PRN Cough #30 caps 08/30/21 cefdinir 300 mg capsule 300 mg PO BID #20 caps 08/30/21 bisoprolol fumarate 5 mg tablet See Rx Instructions .Route 01/29/22 .COMPLEX #90 tabs ondansetron 4 mg disintegrating 4 mg PO Q8H PRN nausea and 03/14/22 tablet vomiting #10 tabs Allergies Allergy/AdvReac Type Severity Reaction Status Date / Time azithromycin AdvReac Mild stomach Verified 03/14/22 12:40 [From Zithromax Z-Abel] cramping PFS PFS Disclaimer: The information contained in this section may have been updated after the patient was seen, as this information can be updated by other users. Medical History (Updated 03/14/22 @ 15:42 by Zak Rizzo MD) Left chronic otitis media Surgical History (Updated 11/17/21 @ 12:50 by April Armstrong RN) History of partial hysterectomy Social History Sm
[2022-03-14 14:30] VITALS: BP 151/91; PULSE 76; O2SAT 97
[2022-03-14 15:00] VITALS: BP 134/78; O2SAT 98
[2022-03-14 15:45] VITALS: BP 134/84; PULSE 66; RESP 17; TEMP 36.7; O2SAT 99
== END 2022-03-14 15:45 | disposition home or self-care (01) ==
PROVIDERS: Emergency Provider Emergency Medicine; PCP Emergency Medicine
DX: K52.9 Noninfective gastroenteritis and colitis, unspecified (principal); R10.9 Unspecified abdominal pain; F17.210 Nicotine dependence, cigarettes, uncomplicated; Z90.711 Acquired absence of uterus with remaining cervical stump
CPT/HCPCS: 74177; 80053; 81001; 83690; 85025; 87086; 96361; 96374; 99285; J2405; Q9967

== ENCOUNTER → 2022-04-20 08:46 | Outpatient (CLI) | payer OTHER, SELFPAY ==
--- NOTE | 2022-04-20 08:46 | US_ITS ---
FINAL REPORT CLINICAL HISTORY: abdominal pain FINDINGS: Ultrasound images of the right upper quadrant were obtained. The pancreas is partially obscured. The liver is fatty infiltrated. There is a small hyperechoic focus in the liver dome of on certain etiology that could represent a small hemangioma. The gallbladder is well visualized and the wall appears normal. There are no gallstones. The common duct is normal. Limited images of the right kidney are unremarkable. IMPRESSION: Fatty liver. Small hyperechoic focus in the liver dome of uncertain etiology could represent a small hemangioma. Reviewed, Interpreted and Dictated by Jabier Bingham III, MD Transcribed by Bo Gonzalez Authenticated and . [facility]
== END ==
PROVIDERS: PCP Emergency Medicine; Visit Provider Emergency Medicine
DX: R10.9 Unspecified abdominal pain (principal)
CPT/HCPCS: 76705

== ENCOUNTER 2022-04-21 10:59 | Day surgery (SDC) | payer OTHER, SELFPAY ==
[2022-04-21 11:27] VITALS: BP 114/78; PULSE 69; RESP 18; TEMP 36.9; O2SAT 98; BMI 33.6
--- NOTE | 2022-04-21 12:04 | EXP.ANES.CKL ---
[facility] Disclaimer: The information contained in this section may have been updated after the patient was seen, as this information can be updated by other users. Medical History (Updated 04/05/22 @ 12:05 by Alyson Garcia RN) Diverticulitis History of gastroesophageal reflux (GERD) Left chronic otitis media Surgical History (Updated 04/05/22 @ 12:01 by Alyson Garcia RN) History of partial hysterectomy History of placement of ear tubes Family History (Updated 04/05/22 @ 12:05 by Alyson Garcia RN) Mother Lung cancer Other Cancer Diabetes Family history of diabetes mellitus type II Heart attack Hyperlipidemia Hypertension Social History (Updated 04/05/22 @ 12:05 by Alyson Garcia RN) Smoking Status: Current every day smoker tobacco type: cigarettes packs per day: 1 second hand exposure: No alcohol intake: never substance use type: denies use current occupational status: employed Travel in the last 8 weeks: None household members: significant other housing: house lives independently: Yes marital status: single education level: high school 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 current occupational exposures/hazards: No caffeine: Yes special vj needs: No agree to transfusion: No do you feel safe at home: Yes victim of physical abuse: No victim of emotional abuse: No victim of sexual abuse: No would you like helpful sources: No [facility] Anesthesia Checklist Patient Identification Patient Identification: Arm Band Structural Data Admitted From: Home Planned Operative Procedure/s: EGD Consent for Planned Operative Procedure(s) Verified: Yes Verified Documents: Surgical Consent and History and Physical NPO Status Verified Time NPO: 00:00 Additional verifications Anesthesia Reactions: No Hx Blood Transfusions: No Blood Transfusion Reaction: No Airway Assessment C-Spine Mobility Assessed: Yes TMJ Mobility Assessed: Yes Dentition: Good Dentition Neurological Assessment Level of Consciousness: Awake and Alert Anesthesia Plan Anesthesia Risk discussed: Yes Anesthesia Plan: Verified ASA Class: II Anesthesia Type: MAC
[2022-04-21 12:33] VITALS: O2SAT 98
--- NOTE | 2022-04-21 12:42 | HMH.SCOPE ---
Procedure: Date: 04/21/22 Patient Date of :: 1975 Procedure Performed:: EGD Indications:: Dysphagia Performing Provider:: Chencho Hannah MD Referring Provider:: Clifton Armstrong MD Sedation:: See RN records Procedure:: The gastroscope was gently passed through the incisoral orifice into the oral cavity and under direct visualization the esophagus was intubated. The endoscope was passed down the esophagus, through the stomach, and into the duodenum. Color, texture, mucosa, and anatomy of the esophagus, stomach, and duodenum were carefully examined with the scope.. Findings:: Oropharynx: normal Esophagus: normal. Empiric dilatation performed with 56F bougie dilatation EG Junction: measured at 37 cm Cardia: normal Fundus: normal Body: normal Antrum: normal Duodenal bulb: normal Duodenum (second and third portion): normal Recommendations:: If dysphagia symptom does not improve after esophageal dilatation, then recommend barium esophagram with tablet Complications:: None Estimated blood obtained (mL): 0
[2022-04-21 12:45] VITALS: BP 93/58; PULSE 68; RESP 15; TEMP 36.4; O2SAT 94
[2022-04-21 12:55] VITALS: BP 104/50; PULSE 60; RESP 16; O2SAT 95
[2022-04-21 13:05] VITALS: BP 104/65; PULSE 60; RESP 17; O2SAT 98
[2022-04-21 13:15] VITALS: BP 104/72; PULSE 52; RESP 17; O2SAT 98
== END 2022-04-21 13:15 | disposition home or self-care (01) ==
PROVIDERS: PCP Emergency Medicine; Visit Provider Internal Medicine
PROC: 0DJ08ZZ Inspection of Upper Intestinal Tract, Via Natural or Artificial Opening Endoscopic (ICD-10-PCS; CPT 43235; principal; 2022-04-21 12:30)
DX: R13.10 Dysphagia, unspecified (principal); K21.9 Gastro-esophageal reflux disease without esophagitis; F17.210 Nicotine dependence, cigarettes, uncomplicated; Z79.899 Other long term (current) drug therapy
CPT/HCPCS: 43248

== ENCOUNTER → 2022-06-14 08:10 | Outpatient (CLI) | payer OTHER, SELFPAY ==
[2022-06-14 08:36] LABS: Basophils # 0.1 K/mm3 (0-0.2); Basophils % 0.8 % (0.1-2.0); Eosinophils # 0.4 K/mm3 (0.0-0.4); Eosinophils % 2.7 % (0.1-12.0); Hematocrit 49.1 % (37.0-47.0); Hemoglobin 15.9 g/dL (12.2-16.2); Lymphocytes % 7.9 % (10-50); Mean Corpuscular HGB Conc 32.3 g/dL (31.8-35.4); Mean Corpuscular Hemoglobin 32.1 pg (27.0-31.2); Mean Corpuscular Volume 99.4 fl (81-99); Mean Platelet Volume 8.4 fl (7.4-10.4); Monocytes # 0.8 K/mm3 (0.1-1.0); Monocytes % 6.3 % (1.7-9.3); Neutrophils # 10.6 K/mm3 (1.8-7.8); Neutrophils % 82.3 % (37.0-80.0); Platelet Count 323 K/mm3 (142-424); Red Blood Count 4.94 M/mm3 (4.20-5.40); Red Cell Distribution Width 13.1 % (11.5-17.5); White Blood Count 12.9 K/mm3 (4.8-10.8)
[2022-06-14 09:18] LABS: Chloride 104 mmol/L (98-107); Potassium 4.7 mmoL/L (3.5-5.1); Sodium 137 mmol/L (136-145)
[2022-06-14 09:20] LABS: Bilirubin,Unconjugated 0.9 mg/dL (0.0-1.1); Blood Urea Nitrogen 13 mg/dl (7-17); Estimated Glomerular Filt Rate 77 ml/min (>60); GFR (African American) 93 ML/MIN (>60)
[2022-06-14 09:21] LABS: Albumin Level 4.4 g/dl (3.5-5.0); Alkaline Phosphatase 164 U/L (38-126); Anion Gap 13.7 mEq/L (5-15); Bilirubin,Direct 0.1 mg/dl (0.0-0.4); Bilirubin,Indirect 0.9 mg/dL (0.0-0.9); Calcium 9.7 mg/dl (8.4-10.2); Carbon Dioxide 24 mmol/L (22.0-30.0); Chol/HDL Ratio 2.4 (1-3.5); Cholesterol 117 mg/dl (140-200); Glucose 114 mg/dl (74-100); HDL Cholesterol 48 mg/dl (40-60); Total Protein,Serum 7.2 g/dl (6.3-8.2); Triglycerides 96 mg/dl (30-150); VLDL Cholesterol 19 mg/dL (0-40)
[2022-06-14 09:29] LABS: Aspartate Amino Transferase 745 U/L (14-36)
[2022-06-14 09:32] LABS: Direct LDL Cholesterol 48.08 mg/dL (100-129)
[2022-06-14 09:38] LABS: Alanine Aminotransferase 1178 U/L (12-78)
[2022-06-14 09:39] LABS: Free T4 (Free Thyroxine) 1.36 ng/dl (0.78-2.19)
[2022-06-14 09:52] LABS: Thyroid Stimulating Hormone 1.16 uIU/mL (0.465-4.68)
== END | disposition home or self-care (01) ==
PROVIDERS: PCP Emergency Medicine; Visit Provider Nurse Practitioner Family
DX: I25.10 Atherosclerotic heart disease of native coronary artery without angina pectoris (principal); E78.2 Mixed hyperlipidemia; Z79.899 Other long term (current) drug therapy
CPT/HCPCS: 36415; 80048; 80061; 80076; 84439; 84443; 85025

== ENCOUNTER → 2022-06-24 09:48 | Outpatient (CLI) | payer OTHER, SELFPAY ==
--- NOTE | 2022-06-24 10:05 | MR_ITS ---
FINAL REPORT CLINICAL HISTORY: abdominal pain. ABNORMAL US. ELEVATED LIVER ENZYMES. FINDINGS: Multiplanar MR imaging of the abdomen was performed without and with contrast. Images of the liver reveal no evidence of mass. There is no evidence of biliary ductal dilatation. The gallbladder has an unremarkable appearance. No other mass or adenopathy is identified. No abnormal fluid collection is seen. No abnormal contrast enhancement is seen on the postcontrast images. The pancreas has an unremarkable appearance. There is a probable calcified granuloma in the spleen. There is no evidence of adenopathy. IMPRESSION: No mass or abnormal contrast enhancement identified. Authenticated and ERN
== END ==
PROVIDERS: PCP Emergency Medicine; Visit Provider Physician Assistant
DX: K76.9 Liver disease, unspecified (principal); D18.00 Hemangioma unspecified site
CPT/HCPCS: 74183; A9576

== ENCOUNTER → 2022-06-29 07:00 | Outpatient (CLI) | payer OTHER, SELFPAY ==
[2022-06-29 08:18] LABS: Bilirubin,Unconjugated 0.3 mg/dL (0.0-1.1)
[2022-06-29 08:19] LABS: Alanine Aminotransferase 721 U/L (12-78); Albumin Level 3.7 g/dl (3.5-5.0); Alkaline Phosphatase 158 U/L (38-126); Aspartate Amino Transferase 314 U/L (14-36); Bilirubin,Direct 0.2 mg/dl (0.0-0.4); Bilirubin,Indirect 0.3 mg/dL (0.0-0.9); Bilirubin,Total 0.5 mg/dl (0.2-1.3); Total Protein,Serum 6.5 g/dl (6.3-8.2)
== END ==
PROVIDERS: PCP Emergency Medicine; Visit Provider Physician Assistant
DX: I25.10 Atherosclerotic heart disease of native coronary artery without angina pectoris (principal); E78.2 Mixed hyperlipidemia; I11.9 Hypertensive heart disease without heart failure
CPT/HCPCS: 36415; 80076

== ENCOUNTER → 2022-07-06 06:59 | Outpatient (CLI) | payer OTHER, SELFPAY ==
[2022-07-06 07:57] LABS: Alanine Aminotransferase 308 U/L (12-78); Albumin Level 3.5 g/dl (3.5-5.0); Alkaline Phosphatase 106 U/L (38-126); Aspartate Amino Transferase 134 U/L (14-36); Bilirubin,Indirect 0.9 mg/dL (0.0-0.9); Bilirubin,Total 0.9 mg/dl (0.2-1.3); Bilirubin,Unconjugated 0.9 mg/dL (0.0-1.1); Total Protein,Serum 6.3 g/dl (6.3-8.2)
== END ==
PROVIDERS: PCP Emergency Medicine; Visit Provider Physician Assistant
DX: R79.89 Other specified abnormal findings of blood chemistry (principal)
CPT/HCPCS: 36415; 80076

== ENCOUNTER → 2022-07-28 07:07 | Outpatient (CLI) | payer OTHER, SELFPAY ==
[2022-07-28 08:12] LABS: Basophils # 0.1 K/mm3 (0-0.2); Eosinophils # 0.4 K/mm3 (0.0-0.4); Eosinophils % 3.7 % (0.1-12.0); Hematocrit 49.4 % (37.0-47.0); Hemoglobin 15.9 g/dL (12.2-16.2); Lymphocytes # 3.1 K/mm3 (0.7-4.5); Lymphocytes % 25.9 % (10-50); Mean Corpuscular HGB Conc 32.3 g/dL (31.8-35.4); Mean Corpuscular Hemoglobin 32.2 pg (27.0-31.2); Mean Corpuscular Volume 99.9 fl (81-99); Mean Platelet Volume 9.8 fl (7.4-10.4); Monocytes # 0.8 K/mm3 (0.1-1.0); Monocytes % 7.2 % (1.7-9.3); Neutrophils # 7.3 K/mm3 (1.8-7.8); Neutrophils % 62.2 % (37.0-80.0); Platelet Count 356 K/mm3 (142-424); Red Blood Count 4.94 M/mm3 (4.20-5.40); Red Cell Distribution Width 13.5 % (11.5-17.5); White Blood Count 11.8 K/mm3 (4.8-10.8)
[2022-07-28 08:47] LABS: Alanine Aminotransferase 47 U/L (12-78); Albumin Level 4.1 g/dl (3.5-5.0); Alkaline Phosphatase 85 U/L (38-126); Anion Gap 15.1 mEq/L (5-15); Aspartate Amino Transferase 52 U/L (14-36); Bilirubin,Indirect 0.8 mg/dL (0.0-0.9); Bilirubin,Total 0.8 mg/dl (0.2-1.3); Bilirubin,Unconjugated 0.9 mg/dL (0.0-1.1); Blood Urea Nitrogen 13 mg/dl (7-17); Calcium 9.3 mg/dl (8.4-10.2); Carbon Dioxide 26 mmol/L (22.0-30.0); Chloride 103 mmol/L (98-107); Chol/HDL Ratio 2.6 (1-3.5); Cholesterol 180 mg/dl (140-200); Estimated Glomerular Filt Rate 77 ml/min (>60); GFR (African American) 93 ML/MIN (>60); Glucose 90 mg/dl (74-100); HDL Cholesterol 70 mg/dl (40-60); Potassium 4.1 mmoL/L (3.5-5.1); Sodium 140 mmol/L (136-145); Total Protein,Serum 6.8 g/dl (6.3-8.2); Triglycerides 161 mg/dl (30-150); VLDL Cholesterol 32 mg/dL (0-40)
[2022-07-28 08:58] LABS: Direct LDL Cholesterol 73.86 mg/dL (100-129)
[2022-07-28 09:01] LABS: Free T4 (Free Thyroxine) 1.16 ng/dl (0.78-2.19)
[2022-07-28 09:17] LABS: Thyroid Stimulating Hormone 1.89 uIU/mL (0.465-4.68)
== END ==
PROVIDERS: PCP Emergency Medicine; Visit Provider Physician Assistant
DX: I25.10 Atherosclerotic heart disease of native coronary artery without angina pectoris (principal); E78.2 Mixed hyperlipidemia; I11.9 Hypertensive heart disease without heart failure; R79.89 Other specified abnormal findings of blood chemistry; Z79.899 Other long term (current) drug therapy
CPT/HCPCS: 36415; 80048; 80061; 80076; 83735; 84439; 84443; 85025

== ENCOUNTER → 2022-08-03 15:00 | Outpatient (CLI) | payer OTHER, SELFPAY ==
[2022-08-03 17:27] LABS: Hemoglobin A1C 5.4 % (4.0-6.0)
== END ==
PROVIDERS: PCP Nurse Practitioner Family; Visit Provider Nurse Practitioner Family
DX: E11.9 Type 2 diabetes mellitus without complications (principal); R79.89 Other specified abnormal findings of blood chemistry
CPT/HCPCS: 83036; 87086

== ENCOUNTER → 2022-11-06 07:04 | Outpatient (CLI) | payer OTHER, SELFPAY ==
[2022-11-06 07:13] LABS: Microscopic, Urine URINE MICROSCOPIC (MICROSCOPIC)
[2022-11-06 07:29] LABS: Appearance,Urine CLEAR (Clear); Bilirubin,Urine Negative (Negative); Blood, Urine Negative (Negative); Color,Urine YELLOW (Yellow); Glucose,Urine (UA) Negative (Negative); Ketones,Urine Negative (Negative); Leukocyte Esterase,Urine Negative (Negative); Nitrate,Urine Negative (Negative); Protein,Urine Negative (Negative); Specific Gravity, Urine 1.025 (1.005-1.030); Urobilinogen,Urine 0.2 EU/dl (0.2)
[2022-11-06 07:32] LABS: Basophils # 0.1 K/mm3 (0-0.2); Basophils % 0.8 % (0.1-2.0); Eosinophils # 0.4 K/mm3 (0.0-0.4); Eosinophils % 4.3 % (0.1-12.0); Hematocrit 47.8 % (37.0-47.0); Hemoglobin 15.1 g/dL (12.2-16.2); Lymphocytes # 2.6 K/mm3 (0.7-4.5); Lymphocytes % 28.2 % (10-50); Mean Corpuscular HGB Conc 31.6 g/dL (31.8-35.4); Mean Corpuscular Hemoglobin 31.6 pg (27.0-31.2); Mean Corpuscular Volume 99.8 fl (81-99); Mean Platelet Volume 8.3 fl (7.4-10.4); Monocytes # 0.5 K/mm3 (0.1-1.0); Monocytes % 5.9 % (1.7-9.3); Neutrophils # 5.6 K/mm3 (1.8-7.8); Neutrophils % 60.8 % (37.0-80.0); Platelet Count 326 K/mm3 (142-424); Red Blood Count 4.78 M/mm3 (4.20-5.40); Red Cell Distribution Width 12.9 % (11.5-17.5); White Blood Count 9.1 K/mm3 (4.8-10.8)
[2022-11-06 07:39] LABS: Bacteria,Urine Trace /lpf
[2022-11-06 07:45] LABS: Alanine Aminotransferase 26 U/L (12-78); Albumin Level 3.8 g/dl (3.5-5.0); Albumin/Globulin Ratio 1.2 (1.1-1.8); Alkaline Phosphatase 84 U/L (38-126); Anion Gap 13.3 mEq/L (5-15); Aspartate Amino Transferase 28 U/L (14-36); Bilirubin,Total 0.6 mg/dl (0.2-1.3); Blood Urea Nitrogen 17 mg/dl (7-17); Calcium 9.2 mg/dl (8.4-10.2); Carbon Dioxide 25 mmol/L (22.0-30.0); Chloride 106 mmol/L (98-107); Chol/HDL Ratio 2.3 (1-3.5); Cholesterol 181 mg/dl (140-200); Estimated Glomerular Filt Rate 77 ml/min (>60); GFR (African American) 93 ML/MIN (>60); Globulin 3.1 g/dL (1.3-3.2); Glucose 105 mg/dl (74-100); HDL Cholesterol 80 mg/dl (40-60); Potassium 4.3 mmoL/L (3.5-5.1); Sodium 140 mmol/L (136-145); Total Protein,Serum 6.9 g/dl (6.3-8.2); Triglycerides 105 mg/dl (30-150); VLDL Cholesterol 21 mg/dL (0-40)
[2022-11-06 07:48] LABS: Total Protein,Urine Random < 5.0 mg/dL (0.0-12.0)
[2022-11-06 07:56] LABS: Direct LDL Cholesterol 74.31 mg/dL (100-129)
== END ==
PROVIDERS: PCP Nurse Practitioner Family; Visit Provider Nurse Practitioner Family
DX: I10 Essential (primary) hypertension (principal); E78.5 Hyperlipidemia, unspecified; R79.89 Other specified abnormal findings of blood chemistry; R79.1 Abnormal coagulation profile; I25.10 Atherosclerotic heart disease of native coronary artery without angina pectoris
CPT/HCPCS: 36415; 80053; 80061; 81001; 84155; 85025; 87086

== ENCOUNTER 2022-11-14 11:15 | Emergency (ER) | payer OTHER, SELFPAY ==
[2022-11-14 11:17] VITALS: BP 147/88; PULSE 73; RESP 19; TEMP 36.8; O2SAT 98; BMI 38.9
--- NOTE | 2022-11-14 11:32 | XR_ITS ---
PROCEDURE INFORMATION: Exam: XR Left Humerus Exam date and time: 11/14/2022 11:30 AM Age: 47 years old Clinical indication: Pain; Upper arm; Left; Additional info: Gilby a tear in the muscle when she raised her arm TECHNIQUE: Imaging protocol: Radiologic exam of the left humerus. Views: 2 or more views. Total images: 2 COMPARISON: CT CHEST W CON 06/03/2021 1:01 PM FINDINGS: Bones/joints: No evidence of acute fracture or dislocation. Soft tissues: Soft tissues are within normal limits. IMPRESSION: No evidence of acute fracture or dislocation.
--- NOTE | 2022-11-14 11:55 | EXP.UTC ---
Discharge Plan Disposition Patient Disposition: Home, Self-Care Condition: Good Prescriptions Prescriptions: No Action aspirin 81 MG tablet,chewable 81 mg PO DAILY bisoprolol fumarate 5 mg tablet See Rx Instructions .ROUTE .COMPLEX Rx Instructions: Take 1 tablet by mouth once daily hydrochlorothiazide 25 mg tablet 25 mg PO Q OTHER DAY Referrals Follow up/Referrals: Lorrie Pulido APRN [Primary Care Provider] - See instructions Macario Valencia DO [Staff Physician] - See instructions (Call office in the morning for appointment) Activity Restrictions/Add. Instructions Additional Instructions/Restrictions: *RICE, Rest the extremity, Ice 15-20 minutes 3-4 times daily, Compress- wear the fay wrap as discussed as much as possible to help reduce swelling and pain, Elevate the extremity when at rest *Sling is for support and help control swelling, use it except in the shower. Be sure that is not to tight but not to loose either *Elevate when resting? *Ibuprofen 600-800mg every 6-8 hours as needed for pain an inflammation. If need something more can take Tylenol in between doses of Ibuprofen to help Immediately follow up with your family doctor for new or worsening of symptoms, or no noticeable improvement over the next 3-5 days Clinical Impressions Clinical Impression: Biceps muscle tear Qualifiers: Encounter type: initial encounter Laterality: left Qualified Code(s): S46.212A - Strain of muscle, fascia and tendon of other parts of biceps, left arm, initial encounter Instructions Patient Instructions: DI for Arm Pain, How to Use a Sling Discharge ED Provider: Nereida Cohen [facility] General Stated complaint: pain in Lt shoulder/arm, no acccident Mode of Arrival: Ambulatory Source of Information: Patient Limitations: No Limitations Time Seen by Provider: 11/14/22 12:04 Description of Symptoms (Recalled from Triage Doc. by RN): Left arm pain. She was doing something yesterday and stated that it sounded like a tear. A paper tearing . She stated that she cannot lift it. She denies any chest pain. HEENT Symptoms (Recalled from RN notes): No Resp Symptoms (Recalled from RN notes): No Skin Symptoms (Recalled from RN notes): No MS Symptoms (Recalled from RN notes): Yes Functional Status (Recalled from RN notes): n/a History of Present Illness Provider Complaint: Patient states that she was trying to raise a swing up and she climbed up and as she was reaching to get it she felt something tear States that she immediately started having pain in her left upper arm and hurts when she moves it or tries to raise it up Related Data Home Medications Medication Instructions Recorded Confirmed aspirin 81 mg chewable tablet 81 mg PO DAILY heart health 08/03/21 11/04/22 bisoprolol fumarate 5 mg tablet See Rx Instructions .Route 04/05/22 11/14/22 .COMPLEX HTN hydrochlorothiazide 25 mg tablet 25 mg PO Q OTHER DAY . 11/14/22 11/14/22 Allergies Allergy/AdvReac Type Severity Reaction Status Date / Time azithromycin AdvReac Mild stomach Verified 11/14/22 11:40 [From Zithromax Z-Abel] cramping Worker's Comp Is this a Worker's Comp case?: No [facility] Disclaimer: The information contained in this section may have been updated after the patient was seen, as this information can be updated by other users. Medical History (Updated 11/14/22 @ 12:23 by Nereida Cohen APRN) Abdominal muscle strain Abdominal pain Abdominal pain Abnormal ECG CAD (coronary artery disease) Chest pain Chest wall pain COVID-19 Diverticulitis Elevated LFTs Enteritis Establishing care with new doctor, encounter for Exposure to COVID-19 virus HHD (hypertensive heart disease) History of gastroesophageal reflux (GERD) HLD (hyperlipidemia) HTN (hypertension) Left chronic otitis media Obesity (BMI 30.0-34.9) Pain Pleuritis Proteinuria Sinusitis Tobacco use URI (upper respiratory infection) Surgical
[2022-11-14 12:38] VITALS: BP 147/88; PULSE 73; RESP 18; TEMP 36.8; O2SAT 98
== END 2022-11-14 12:38 | disposition home or self-care (01) ==
PROVIDERS: Emergency Provider Nurse Practitioner; PCP Nurse Practitioner Family
DX: S46.212A Strain of muscle, fascia and tendon of other parts of biceps, left arm, initial encounter (principal); F17.210 Nicotine dependence, cigarettes, uncomplicated; I25.10 Atherosclerotic heart disease of native coronary artery without angina pectoris; I10 Essential (primary) hypertension; E78.5 Hyperlipidemia, unspecified; E66.9 Obesity, unspecified; X50.0XXA Overexertion from strenuous movement or load, initial encounter
CPT/HCPCS: 73060; 99212; 99214; G0463

== ENCOUNTER → 2022-11-29 16:06 | Outpatient (CLI) | payer OTHER, SELFPAY ==
--- NOTE | 2022-11-29 16:06 | MR_ITS ---
PROCEDURE INFORMATION: Exam: MR Left Upper Extremity Joint Without Contrast; Shoulder Exam date and time: 11/29/2022 4:20 PM Age: 47 years old Clinical indication: Patient HX: Left shoulder pain, limited range of motion, injury while reaching out to push a swing. ; Additional info: Lt shoulder pain TECHNIQUE: Imaging protocol: Magnetic resonance imaging of the left upper extremity without contrast. Exam focused on the shoulder. COMPARISON: 1. CR XR HUMERUS LT 11/14/2022 11:[address] CHEST W CON 06/03/2021 1:01 PM FINDINGS: Limitations: Motion artifact. Fast sequences were utilized to decrease motion artifact but have inherently decreased anatomic detail. Bones/joints: A mild effusion involves the glenohumeral joint. There is mild primary osteoarthritis of the acromioclavicular joint. The acromion is laterally downsloping, which can contribute to rotator cuff impingement. Glenoid labrum: No convincing tear on this non-arthrographic study. Bursae: A mild amount of fluid is present in the subacromial-subdeltoid bursa. Supraspinatus tendon: Severe tendinosis involves the supraspinatus tendon. Infraspinatus tendon: Moderate tendinosis involves the infraspinatus tendon. Subscapularis tendon: Severe tendinosis involves the subscapularis tendon. Teres minor tendon: No tear or significant tendinosis involves the teres minor tendon. Tendon of biceps brachii: Moderate tendinosis involves the intra-articular portion of the long head of the biceps tendon. Glenohumeral ligaments: Unremarkable as visualized. Soft tissues: The rotator cuff musculature demonstrates no significant edema or atrophy. IMPRESSION: 1. Limited study detail. 2. Severe supraspinatus and subscapularis tendinosis. 3. Moderate tendinosis of the infraspinatus tendon and long head of the biceps tendon. 4. 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 5. Laterally downsloping acromion, which can contribute to rotator cuff impingement. 6. Mild subacromial-subdeltoid bursitis.
== END ==
PROVIDERS: PCP Nurse Practitioner Family; Visit Provider Orthopaedic Surgery
DX: M25.512 Pain in left shoulder (principal); S46.212A Strain of muscle, fascia and tendon of other parts of biceps, left arm, initial encounter
CPT/HCPCS: 73221

== ENCOUNTER 2023-02-02 15:00 | Outpatient (RCR) | payer OTHER, SELFPAY ==
--- NOTE | 2023-01-31 08:48 | HMH.OTOPEV ---
OT Inpatient Evaluation Rehab OT Outpatient Eval Start: 01/31/23 08:35 Freq: Status: Active Protocol: [facility]31[facility]23 08:35 [facility] (Rec: 01/31/23 08:48 [id number] E-signed By Shilo Quezada, OT Outpatient Therapy Subjective History Subjective History Pt is a 47 year female who reports to therapy for initial evaluation to left shoulder. Pt explains she has had pain on and off for years, but in October she reached above her head and felt a pop with immediate pain. Since then, she has experienced pain, decreased AROM, swelling, and decreased strength. Pt did have a MRI completed at the left shoulder with the following findings: 1. Limited study detail. 2. Severe supraspinatus and subscapularis tendinosis. 3. Moderate tendinosis of the infraspinatus tendon and long head of the biceps tendon. 4. 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 5. Laterally downsloping acromion, which can contribute to rotator cuff impingement. 6. Mild subacromial- subdeltoid bursitis. Pt has seen ortho who provided a steroid injection and steroids by mouth. She reports the steroids improved her pain and swelling temporarily, but it has returned. 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 Today pt demonstrates with significant decline in both AROM and strength at Left shoulder. Pt will continue to be seen twice a week to address all left shoulder deficits. New diagnosis of cancer in past 12 No months? Chief Complaint Pain,Stiff,Swelling,Weakness Symptom Type Ache,Throb,Sharp,Dull,Stabbing Symptoms Relieved By Rest/Positioning Symptoms Aggravated By Physical Activity,Lifting Prior Functional Limitations None Current Functional Limitations Reaching,Lifting,Housework, Dressing,Sleeping,Recreation Activity Symptom Description Constant but Variable Level of pain today (0-10) 2 Pain scale - at its best (0-10) 1 Pain scale - at its worst (0-10) 9 Shoulder/Elbow Eval Shoulder Objective Measurements Shoulder ROM Left Shoulder Abduction Active Range of 75 degrees Motion (degrees) Shoulder Flexion Active Range of Motion 98 degrees (degrees) Query Text: Shoulder External Rotation Active Range 60 degrees of Motion (degrees) Shoulder Internal Rotation Active Range 40 degrees of Motion (degrees) pain with active ROM shoulder exam left standard pain with passive ROM shoulder exam left standard decreased ROM shoulder exam standard left Shoulder MMT Shoulder Abduction Strength Grade 3 Fair Shoulder Extension Strength Grade 3 Fair Shoulder Flexion Strength Grade 3 Fair Shoulder External Rotation Strength 3 Fair Grade Shoulder Internal Rotation Strength 3 Fair Grade Shoulder Strength Patient Testing Sitting Position Elbow Objective Measurements QuickDASH Activities Please rate your ability to do the following activities in the last week by selecting the number below the appropriate response. 1. Open a tight or new jar. Mild difficulty 2. Do heavy substation operator chief (e.g., wash Moderate difficulty corona, floors). 3. Carry a shopping bag or briefcase. Mild difficulty 4. Wash your back. Severe difficulty 5. Use a knife to cut food. No difficulty 6. Recreational activities in which you Mild difficulty take some force or impact through your arm, shoulder, or hand (e.g., golf, hammering, tennis, etc.). 7. During the past week, to what extent Quite a bit has your arm, shoulder or hand problem interfered with your normal social activities with family, friends, neighbors or groups? 8. During the past week, were you Moderately limited limited in your work or other regular daily activites as a result of your arm, shoulder or hand problem? 9. Arm, shoulder or hand pain. Moderate 10. Tingling (pins and needles) in your None arm, shoulder or hand. 11. During the past week, how much Mild difficulty difficulty have you had sleeping because of the pain in your arm, shoulder or hand? Quick DASH 27 Work Module (optional) The following questions ask about the impact of your arm, shoulder or hand problem on your ability to work (including homemaking if that is your main work role). Please indicate what your job/work is: EVS Do you work? Yes 1. Using your usual technique for your Mild difficulty work? 2. Doing your usual work because of arm, Mild difficulty shoulder or hand pain? 3. Doing your work as well as you would Mild difficulty like? 4. Spending your usual amount of time Mild difficulty doing your work? Quick Dash Work Module Score 8 OT Outpatient Assessment Impairments Problems/Impairments Palpation Tenderness,Impaired Range of Motion,Impaired Strength,Impaired Endurance, Impaired Lifting,Impaired Dressing,Impaired Shower/ Bathing,Impaired Household Care,Impaired Recreational Activities,Impaired Work Activities,Subjective C/O Pain Prognosis Rehab Potential Good Clinical Impression Consistent with Diagnosis Yes Short Term Goals Number of Weeks 4 Increase Range of Motion Yes: Flex: 120 Abd: 110 ER: 75 IR: 50 Increase Strength Yes: 3+/5 throughout left shoulder Increase Endurance Yes: Pt will tolerate L shoulder exercises for ~20 min prior to rest. Decrease Subjective C/O Pain Yes: 5/10 at worst Patient to be Ind w/ HEP Yes: AAROM exercises; pulleys Improve Quick Dash Score Yes: 25 or below Director Of Cath Lab Goals Number of Weeks 8 Increase Range of Motion Yes: Flex: 140 Abd: 120 ER: 80 IR: 60 Increase Strength Yes: 4,4-/5 throughout left shoulder Increase Endurance Yes: Pt will tolerate L shoulder for ~30 min prior to rest. Decrease Subjective C/O Pain Yes: 3/10 at worst Patient to be Ind w/ Advanced HEP Yes: Advanced strengthening Improve Quick Dash Score Yes: 20 or below Outpatient Therapy Plan of Care Treatment Plan May Include Therapeutic Exercise Including Home Yes Exercise Program Manual Therapy Techniques Yes Neuromuscular Re-education Yes Therapeutic Activities to Return to Yes Previous Functional/Work Level ADL/Self Care Education Yes Thermal Modalities Yes Electrical Stimulation Yes Ultrasound/Phonophoresis Yes Iontophoresis Yes Orthotics/Bracing/Splinting Yes Massage Yes Eval/Re-Eval Yes Frequency Times per week 2 Duration Number of Weeks 8 Addendums This patient is a candidate for social No or vocational rehab? Patient/Guardian verbally acknowledges Yes understanding of treatment program and consents to further treatment? Patient/Guardian verbally acknowledges Yes understanding of diagnosis, prognosis and goals for treatment? Eval Complexity OT Charge 23537 - Moderate Complexity PHYSICIAN CERTIFICATION: I certify the specified therapy services for Jennifer Mays are required, authorized, and reviewed every 30 days.
== END 2023-02-02 16:00 | disposition home or self-care (01) ==
LOC: OT 15:00
PROVIDERS: PCP Nurse Practitioner Family; Visit Provider Nurse Practitioner Family
DX: M25.512 Pain in left shoulder (principal); S46.212A Strain of muscle, fascia and tendon of other parts of biceps, left arm, initial encounter; M25.812 Other specified joint disorders, left shoulder; M77.8 Other enthesopathies, not elsewhere classified
CPT/HCPCS: 97010; 97014; 97110; 97140; 97166; G0283

== ENCOUNTER → 2023-02-02 15:12 | Outpatient (CLI) | payer OTHER, SELFPAY ==
--- NOTE | 2023-02-02 15:13 | MR_ITS ---
FINAL REPORT CLINICAL HISTORY: left upper arm swelling, pain, loss of ROM FINDINGS: Multiplanar MR imaging was obtained of the left humerus without contrast. The visualized bony structures are intact. There is no evidence of fracture or bone marrow edema. There is no bony mass. There is a complete tear of the long head of the biceps tendon. Tendon is retracted to the mid upper arm. Fluid is seen the long head of the biceps muscle. IMPRESSION: Complete tear of the long head of the biceps tendon with tendon retraction. Reviewed, Interpreted and Dictated by Jabier Bingham III, MD Transcribed by Makayla Rowland Authenticated and [facility]
== END ==
PROVIDERS: PCP Nurse Practitioner Family; Visit Provider Nurse Practitioner Family
DX: R60.0 Localized edema (principal); S46.219A Strain of muscle, fascia and tendon of other parts of biceps, unspecified arm, initial encounter
CPT/HCPCS: 73218

== ENCOUNTER → 2023-02-07 13:47 | Outpatient (CLI) | payer OTHER, SELFPAY ==
--- NOTE | 2023-02-07 13:53 | XR_ITS ---
FINAL REPORT CLINICAL HISTORY: biceps tendon tear soa pre-op surgery FINDINGS: 2 views of the chest were obtained . The heart is normal in size. The mediastinum is within normal limits. The lungs are clear. There is no pneumothorax. Osseous structures are unremarkable. IMPRESSION: No acute cardiopulmonary process. Reviewed, Interpreted and Dictated by Aly Bender MD Transcribed by Talia Reina Authenticated and [facility]
== END ==
PROVIDERS: PCP Nurse Practitioner Family; Visit Provider Nurse Practitioner Family
DX: S46.212A Strain of muscle, fascia and tendon of other parts of biceps, left arm, initial encounter; R06.02 Shortness of breath
CPT/HCPCS: 71046

== ENCOUNTER → 2023-02-07 14:39 | Outpatient (CLI) | payer OTHER, SELFPAY ==
[2023-02-07 14:54] LABS: Basophils % 0.2 % (0.1-2.0); Eosinophils % 0.2 % (0.1-12.0); Hematocrit 47.6 % (37.0-47.0); Lymphocytes # 2.5 K/mm3 (0.7-4.5); Lymphocytes % 12.2 % (10-50); Mean Corpuscular HGB Conc 33.5 g/dL (31.8-35.4); Mean Corpuscular Hemoglobin 32.9 pg (27.0-31.2); Mean Corpuscular Volume 98.2 fl (81-99); Mean Platelet Volume 8.7 fl (7.4-10.4); Monocytes # 0.9 K/mm3 (0.1-1.0); Monocytes % 4.3 % (1.7-9.3); Neutrophils % 83.1 % (37.0-80.0); Platelet Count 484 K/mm3 (142-424); Red Blood Count 4.85 M/mm3 (4.20-5.40); Red Cell Distribution Width 13.5 % (11.5-17.5); White Blood Count 20.4 K/mm3 (4.8-10.8)
[2023-02-07 14:55] LABS: MANUAL DIFFERENTIAL MANUAL DIFFERENTIAL (MANUAL DIFF)
[2023-02-07 15:14] LABS: Lymphocytes % 19 % (10-50); Monocytes % 10 % (2-9); Neutrophils % 71 % (42-76); Platelet Estimate Slight Increase; RBC Morphology Normal; Total Cells Counted 100
[2023-02-07 15:24] LABS: Anion Gap 11.7 mEq/L (5-15); Blood Urea Nitrogen 20 mg/dl (7-17); Calcium 9.1 mg/dl (8.4-10.2); Carbon Dioxide 27 mmol/L (22.0-30.0); Chloride 101 mmol/L (98-107); Estimated Glomerular Filt Rate 77 ml/min (>60); GFR (African American) 93 ML/MIN (>60); Glucose 102 mg/dl (74-100); Potassium 4.7 mmoL/L (3.5-5.1); Sodium 135 mmol/L (136-145)
[2023-02-07 15:28] LABS: Hemoglobin A1C 5.6 % (4.0-6.0)
== END ==
PROVIDERS: PCP Nurse Practitioner Family; Visit Provider Nurse Practitioner Family
DX: S46.212A Strain of muscle, fascia and tendon of other parts of biceps, left arm, initial encounter (principal); R73.09 Other abnormal glucose
CPT/HCPCS: 80048; 83036; 85007; 85025

== ENCOUNTER 2023-04-26 06:32 | Outpatient (CLI) | payer OTHER, SELFPAY | END 2023-04-26 23:59 | LOC: LAB.DROPOF 04-28 06:33 | PROVIDERS: PCP Nurse Practitioner; Visit Provider Nurse Practitioner | DX: H66.92 Otitis media, unspecified, left ear (principal); B37.9 Candidiasis, unspecified | CPT/HCPCS: 87070 ==

== ENCOUNTER 2023-05-03 15:00 | Outpatient (RCR) | payer OTHER, SELFPAY | END 2023-05-03 15:05 | disposition home or self-care (01) | LOC: PT 15:00 | PROVIDERS: PCP Nurse Practitioner Family; Visit Provider Orthopaedic Surgery | DX: I89.0 Lymphedema, not elsewhere classified (principal) | CPT/HCPCS: 97140; 97163 ==

== ENCOUNTER 2023-06-09 15:30 | Outpatient (RCR) | payer OTHER, SELFPAY | END 2023-06-09 15:35 | disposition home or self-care (01) | LOC: OT 15:30 | PROVIDERS: PCP Nurse Practitioner Family; Visit Provider Physician Assistant | DX: M25.512 Pain in left shoulder (principal); M75.112 Incomplete rotator cuff tear or rupture of left shoulder, not specified as traumatic | CPT/HCPCS: 97010; 97014; 97016; 97035; 97110; 97140; 97164; 97165; 97530; G0283 ==

== ENCOUNTER 2023-08-13 06:38 | Outpatient (CLI) | payer OTHER, SELFPAY ==
[2023-08-13 07:20] LABS: Basophils # 0.1 K/mm3 (0-0.2); Basophils % 1.4 % (0.1-2.0); Eosinophils # 0.4 K/mm3 (0.0-0.4); Eosinophils % 3.6 % (0.1-12.0); Hematocrit 46.3 % (37.0-47.0); Hemoglobin 14.9 g/dL (12.2-16.2); Lymphocytes # 2.8 K/mm3 (0.7-4.5); Lymphocytes % 27.4 % (10-50); Mean Corpuscular HGB Conc 32.2 g/dL (31.8-35.4); Mean Corpuscular Hemoglobin 31.4 pg (27.0-31.2); Mean Corpuscular Volume 97.6 fl (81-99); Mean Platelet Volume 8.6 fl (7.4-10.4); Monocytes # 0.5 K/mm3 (0.1-1.0); Monocytes % 5.2 % (1.7-9.3); Neutrophils # 6.3 K/mm3 (1.8-7.8); Neutrophils % 62.4 % (37.0-80.0); Platelet Count 360 K/mm3 (142-424); Red Blood Count 4.74 M/mm3 (4.20-5.40); Red Cell Distribution Width 13.3 % (11.5-17.5); White Blood Count 10.1 K/mm3 (4.8-10.8)
[2023-08-13 08:06] LABS: Chloride 108 mmol/L (98-107); Potassium 4.3 mmoL/L (3.5-5.1); Sodium 138 mmol/L (136-145)
[2023-08-13 08:09] LABS: Alanine Aminotransferase 30 U/L (12-78); Albumin Level 4.3 g/dl (3.5-5.0); Albumin/Globulin Ratio 1.3 (1.1-1.8); Alkaline Phosphatase 75 U/L (38-126); Anion Gap 14.3 mEq/L (5-15); Aspartate Amino Transferase 35 U/L (14-36); Bilirubin,Total 0.6 mg/dl (0.2-1.3); Blood Urea Nitrogen 12 mg/dl (7-17); Calcium 9.5 mg/dl (8.4-10.2); Carbon Dioxide 20 mmol/L (22.0-30.0); Cholesterol 188 mg/dl (140-200); Estimated Glomerular Filt Rate 76 ml/min (>60); GFR (African American) 92 ML/MIN (>60); Globulin 3.3 g/dL (1.3-3.2); Glucose 109 mg/dl (74-100); Iron 107 ug/dL (37-170); Total Protein,Serum 7.6 g/dl (6.3-8.2); Triglycerides 129 mg/dl (30-150); VLDL Cholesterol 26 mg/dL (0-40)
[2023-08-13 08:10] LABS: Chol/HDL Ratio 3.1 (1-3.5); HDL Cholesterol 60 mg/dl (40-60)
[2023-08-13 08:19] LABS: Total Iron Binding Capacity 506 ug/dL (265-497)
[2023-08-13 08:20] LABS: Direct LDL Cholesterol 81.12 mg/dL (100-129)
[2023-08-13 08:43] LABS: Ferritin 17.9 ng/ml (6.24-137)
[2023-08-13 10:02] LABS: Hemoglobin A1C 5.7 % (4.0-6.0)
[2023-08-13 10:12] LABS: Free T4 (Free Thyroxine) 1.14 ng/dl (0.78-2.19)
[2023-08-13 10:13] LABS: 25-OH Vitamin D, Total 32.6 ng/mL (30-100)
[2023-08-13 10:45] LABS: Vitamin B12 623 pg/mL (239-931)
[2023-08-13 11:57] LABS: HIV (1&2) Antibody Rapid N
[2023-08-14 08:34] LABS: HCV Ab Non Reactive (Non Reactive)
[2023-08-19 11:21] LABS: Antinuclear Antibodies (ANA) Negative
== END 2023-08-13 23:59 | disposition home or self-care (01) ==
LOC: LAB 06:40
PROVIDERS: PCP Nurse Practitioner Family; Visit Provider Nurse Practitioner Family
DX: Z11.4 Encounter for screening for human immunodeficiency virus [HIV] (principal); R53.83 Other fatigue; E78.2 Mixed hyperlipidemia; Z13.1 Encounter for screening for diabetes mellitus; M25.50 Pain in unspecified joint; Z11.59 Encounter for screening for other viral diseases; Z68.35 Body mass index [BMI] 35.0-35.9, adult; E66.9 Obesity, unspecified
CPT/HCPCS: 80050; 80053; 80061; 82306; 82607; 82728; 83036; 83540; 83550; 84439; 84443; 85025; 86038; 86225; 86235

== ENCOUNTER 2023-08-16 14:32 | Outpatient (CLI) | payer OTHER, SELFPAY ==
--- NOTE | 2023-08-16 14:33 | MM_ITS ---
PROCEDURE INFORMATION: Exam: MG Bilateral Screening 3D Mammography Exam date and time: 08/16/2023 2:37 PM Age: 48 years old Clinical indication: Screening examination TECHNIQUE: Imaging protocol: Bilateral Screening tomosynthesis and 2D mammography including computer-aided detection (CAD) when performed. Patient unable to elevate left arm COMPARISON: 1. MG MM DIG SCREENING MAMM BI W/CAD 11/14/2020 10:37 AM 2. MG MM DIG SCREENING MAMM BI W/CAD 01/09/2019 4:15 PM FINDINGS: MAMMOGRAPHY: Breast composition: The breasts are heterogeneously dense, which may obscure small masses. Mass: None. Architectural distortion: None. Calcifications: No suspicious calcifications. Asymmetric density: None. Skin thickening: None. Axillary adenopathy: Limited evaluation of the left axilla due to the patient's inability to fully cooperate with the examination. IMPRESSION: No mammographic evidence of malignancy. Annual screening is recommended unless otherwise clinically indicated. ASSESSMENT: BI-RADS Category 1: Negative
== END 2023-08-16 23:59 | disposition home or self-care (01) ==
LOC: RAD 14:33
PROVIDERS: PCP Nurse Practitioner Family; Visit Provider Nurse Practitioner Family
DX: Z12.31 Encounter for screening mammogram for malignant neoplasm of breast (principal)
CPT/HCPCS: 77063; 77067

== ENCOUNTER 2023-12-27 09:14 | Outpatient (CLI) | payer OTHER, SELFPAY ==
[2023-12-27 09:53] LABS: Anion Gap 16.4 mEq/L (5-15); Blood Urea Nitrogen 22 mg/dl (7-17); Calcium 9.4 mg/dl (8.4-10.2); Carbon Dioxide 23 mmol/L (22.0-30.0); Chloride 104 mmol/L (98-107); Estimated Glomerular Filt Rate 67 ml/min (>60); GFR (African American) 81 ML/MIN (>60); Glucose 100 mg/dl (74-100); Potassium 4.4 mmoL/L (3.5-5.1); Sodium 139 mmol/L (136-145)
== END 2023-12-27 23:59 | disposition home or self-care (01) ==
LOC: LAB 09:15
PROVIDERS: PCP Nurse Practitioner Family; Visit Provider Physician Assistant
DX: E78.2 Mixed hyperlipidemia (principal); I25.10 Atherosclerotic heart disease of native coronary artery without angina pectoris; I10 Essential (primary) hypertension; Z72.0 Tobacco use
CPT/HCPCS: 36415; 80048

== ENCOUNTER 2024-01-10 07:35 | Outpatient (CLI) | payer OTHER, SELFPAY ==
--- NOTE | 2024-01-10 07:45 | CA_ITS ---
FINAL REPORT TECHNIQUE: Grayscale, color Doppler and duplex Doppler ultrasound of the kidneys, aorta and renal arteries was performed. Multiple velocities were measured. CLINICAL HISTORY: Family hx-renal failure, HTN, Ex-smoker COMPARISON: None FINDINGS: Aorta velocity: 89 cm/sec Right kidney: 10.9 cm. No evidence of hydronephrosis or mass. Right intrarenal RI: 0.68 through 0.75 Right renal artery velocity: 200.5 cm/sec. Right RAR (Renal artery-Aortic Ratio): 2.26 Left Kidney: 11.3 cm. No evidence of hydronephrosis or mass. Left intrarenal RI: 0.62-0.72 Left renal artery velocity: 175 cm/sec. Left RAR (Renal Artery-Aortic Ratio): 1.97 IMPRESSION: No evidence of significant renal artery stenosis of the left kidney. Less than 60% renal artery stenosis in the right kidney. CTA or catheter angiography of the renal arteries is suggested for further evaluation. Reviewed, Interpreted and Dictated by Jabier Bingham III, MD Transcribed by Luisa Pedroza Authenticated and [facility]
--- NOTE | 2024-01-10 08:08 | US_ITS ---
FINAL REPORT TECHNIQUE: Ultrasound images of the kidneys and bladder were obtained. CLINICAL HISTORY: I10 - Essential (primary) hypertension FINDINGS: The right kidney measures 11.5 cm in length. It is normal in echogenicity. There is no hydronephrosis. The left kidney measures 10.5 cm in length. It is normal in echogenicity. There is no hydronephrosis. The spleen is normal in size. IMPRESSION: Unremarkable renal ultrasound. Reviewed, Interpreted and Dictated by Jabier Bingham III, MD Transcribed by Makayla Rowland Authenticated and [facility]
== END 2024-01-10 23:59 | disposition home or self-care (01) ==
LOC: RT 07:35
PROVIDERS: PCP Nurse Practitioner Family; Visit Provider Physician Assistant
DX: I10 Essential (primary) hypertension (principal)
CPT/HCPCS: 76770; 93976

== ENCOUNTER 2024-06-14 07:54 | Outpatient (CLI) | payer OTHER, SELFPAY ==
[2024-06-14 08:08] LABS: Basophils # 0.1 K/mm3 (0-0.2); Basophils % 0.8 % (0.1-2.0); Eosinophils # 0.3 K/mm3 (0.0-0.4); Eosinophils % 2.9 % (0.1-12.0); Hematocrit 41.3 % (37.0-47.0); Hemoglobin 13.9 g/dL (12.2-16.2); Lymphocytes # 2.5 K/mm3 (0.7-4.5); Lymphocytes % 26.8 % (10-50); Mean Corpuscular HGB Conc 33.7 g/dL (31.8-35.4); Mean Corpuscular Hemoglobin 31.5 pg (27.0-31.2); Mean Corpuscular Volume 93.7 fl (81-99); Mean Platelet Volume 9.8 fl (7.4-10.4); Monocytes # 0.8 K/mm3 (0.1-1.0); Monocytes % 8.1 % (1.7-9.3); Neutrophils # 5.7 K/mm3 (1.8-7.8); Neutrophils % 60.9 % (37.0-80.0); Nucleated Red Blood Cells # 0 10^3/uL; Nucleated Red Blood Cells % 0 %; Platelet Count 380 K/mm3 (142-424); Red Blood Count 4.41 M/mm3 (4.20-5.40); Red Cell Distribution Width 12.5 % (11.5-17.5); Red Cell Distribution Width-SD 43.1 fL; White Blood Count 9.4 K/mm3 (4.8-10.8)
[2024-06-14 08:33] LABS: Albumin Level 4.3 g/dl (3.5-5.0); Chloride 106 mmol/L (98-107); Sodium 141 mmol/L (136-145)
[2024-06-14 08:34] LABS: Potassium 4.9 mmoL/L (3.5-5.1)
[2024-06-14 08:36] LABS: Alanine Aminotransferase 26 U/L (12-78); Anion Gap 15.9 mEq/L (5-15); Aspartate Amino Transferase 28 U/L (14-36); Bilirubin,Unconjugated 0.4 mg/dL (0.0-1.1); Blood Urea Nitrogen 18 mg/dl (7-17); Carbon Dioxide 24 mmol/L (22.0-30.0); Estimated Glomerular Filt Rate 76 ml/min (>60); GFR (African American) 92 ML/MIN (>60); Total Protein,Serum 7.2 g/dl (6.3-8.2)
[2024-06-14 08:37] LABS: Alkaline Phosphatase 85 U/L (38-126); Bilirubin,Direct 0.1 mg/dl (0.0-0.4); Bilirubin,Indirect 0.4 mg/dL (0.0-0.9); Bilirubin,Total 0.5 mg/dl (0.2-1.3); Calcium 9.3 mg/dl (8.4-10.2); Chol/HDL Ratio 2.3 (1-3.5); Cholesterol 170 mg/dl (140-200); Glucose 95 mg/dl (74-100); HDL Cholesterol 73 mg/dl (40-60); Magnesium 1.9 mg/dl (1.6-2.3); Triglycerides 114 mg/dl (30-150); VLDL Cholesterol 23 mg/dL (0-40)
[2024-06-14 09:03] LABS: Direct LDL Cholesterol 73.21 mg/dL (100-129)
[2024-06-14 09:09] LABS: Free T4 (Free Thyroxine) 1.24 ng/dl (0.78-2.19)
[2024-06-14 09:25] LABS: Thyroid Stimulating Hormone 1.69 uIU/mL (0.465-4.68)
== END 2024-06-14 23:59 | disposition home or self-care (01) ==
LOC: LAB 07:55
PROVIDERS: PCP Nurse Practitioner Family; Visit Provider Physician Assistant
DX: I25.10 Atherosclerotic heart disease of native coronary artery without angina pectoris (principal); I11.9 Hypertensive heart disease without heart failure; E78.2 Mixed hyperlipidemia; R06.00 Dyspnea, unspecified; R68.89 Other general symptoms and signs; Z79.899 Other long term (current) drug therapy; Z87.891 Personal history of nicotine dependence
CPT/HCPCS: 36415; 80048; 80061; 80076; 83735; 84439; 84443; 85025

== ENCOUNTER 2024-06-25 06:59 | Outpatient (CLI) | payer OTHER, SELFPAY ==
--- NOTE | 2024-06-25 07:03 | XR_ITS ---
FINAL REPORT CLINICAL HISTORY: Foot pain COMPARISON: None FINDINGS: RIGHT FOOT Three views demonstrate no acute fracture or dislocation. The joint spaces appear normal. No acute soft tissue abnormality is seen. There is an 8 mm os trigonum. IMPRESSION: No acute bony abnormality. Reviewed, Interpreted and Dictated by Aly Bender MD Transcribed by Mona Silva Authenticated and [facility]
--- NOTE | 2024-06-25 07:03 | XR_ITS ---
FINAL REPORT CLINICAL HISTORY: Foot pain COMPARISON: None FINDINGS: LEFT FOOT Three views demonstrate no acute fracture or dislocation. The joint spaces appear normal. No acute soft tissue abnormality is seen. There is a tiny plantar spur. IMPRESSION: No acute bony abnormality. Reviewed, Interpreted and Dictated by Aly Bender MD Transcribed by Mona Silva Authenticated and [facility][1]
== END 2024-06-25 23:59 | disposition home or self-care (01) ==
LOC: RAD 06:59
PROVIDERS: PCP Nurse Practitioner Family; Visit Provider Podiatrist
DX: M79.671 Pain in right foot (principal); M79.672 Pain in left foot
CPT/HCPCS: 73630

== ENCOUNTER 2024-11-03 06:59 | Outpatient (CLI) | payer OTHER, SELFPAY ==
[2024-11-03 07:40] LABS: Hematocrit 41.1 % (37.0-47.0); Hemoglobin 13.9 g/dL (12.2-16.2); Immature Granulocytes % 0.4 %; Mean Corpuscular HGB Conc 33.8 g/dL (31.8-35.4); Mean Corpuscular Hemoglobin 32.0 pg (27.0-31.2); Mean Corpuscular Volume 94.7 fl (81-99); Nucleated Red Blood Cells % 0 %; Platelet Count 339 K/mm3 (142-424); Red Blood Count 4.34 M/mm3 (4.20-5.40); Red Cell Distribution Width-SD 43.7 fL; White Blood Count 9.5 K/mm3 (4.8-10.8)
[2024-11-03 08:09] LABS: Alanine Aminotransferase 25 U/L (12-78); Albumin Level 4.3 g/dl (3.5-5.0); Alkaline Phosphatase 67 U/L (38-126); Anion Gap 11.3 mEq/L (5-15); Aspartate Amino Transferase 28 U/L (14-36); Bilirubin,Direct 0.0 mg/dl (0.0-0.4); Bilirubin,Indirect 0.6 mg/dL (0.0-0.9); Bilirubin,Total 0.6 mg/dl (0.2-1.3); Bilirubin,Unconjugated 0.8 mg/dL (0.0-1.1); Blood Urea Nitrogen 16 mg/dl (7-17); Calcium 9.1 mg/dl (8.4-10.2); Carbon Dioxide 24 mmol/L (22.0-30.0); Chloride 107 mmol/L (98-107); Cholesterol 133 mg/dl (140-200); Creatinine,Serum 0.70 mg/dl (0.52-1.04); Estimated Glomerular Filt Rate 89 ml/min (>60); GFR (African American) 107 ML/MIN (>60); Glucose 96 mg/dl (74-100); HDL Cholesterol 63 mg/dl (40-60); Magnesium 1.8 mg/dl (1.6-2.3); Potassium 4.3 mmoL/L (3.5-5.1); Sodium 138 mmol/L (136-145); Total Protein,Serum 6.8 g/dl (6.3-8.2); Triglycerides 71 mg/dl (30-150)
[2024-11-03 08:25] LABS: Free T4 (Free Thyroxine) 1.28 ng/dl (0.78-2.19)
[2024-11-03 10:06] LABS: Thyroid Stimulating Hormone 1.52 uIU/mL (0.465-4.68)
== END 2024-11-03 23:59 | disposition home or self-care (01) ==
LOC: LAB 07:00
PROVIDERS: PCP Nurse Practitioner Family; Visit Provider Physician Assistant
DX: E78.5 Hyperlipidemia, unspecified (principal); I11.9 Hypertensive heart disease without heart failure; I25.10 Atherosclerotic heart disease of native coronary artery without angina pectoris; K21.9 Gastro-esophageal reflux disease without esophagitis; Z72.0 Tobacco use
CPT/HCPCS: 36415; 80048; 80061; 80076; 83735; 84439; 84443; 85025

== ENCOUNTER 2024-11-20 10:33 | Outpatient (CLI) | payer OTHER, SELFPAY ==
--- NOTE | 2024-11-20 10:30 | MR_ITS ---
FINAL REPORT CLINICAL HISTORY: right humerus pain. pain in upper humerus. heard a pop [id number] ago. limited rom. FINDINGS: Multiplanar MR imaging was obtained of the right humerus without contrast. Bone marrow signal intensity is normal. There is no bone marrow edema or fracture identified. No evidence of periosteal reaction. Signal intensity within the muscular structures is preserved. Subcutaneous tissues are unremarkable. No mass or fluid collection identified. IMPRESSION: No acute abnormality of the humerus or soft tissues of the arm. Please see right shoulder report regarding findings more proximally. Reviewed, Interpreted and Dictated by Doreen Gomez MD Transcribed by Rosanna Law Authenticated and [facility]
--- NOTE | 2024-11-20 13:00 | MR_ITS ---
FINAL REPORT TECHNIQUE: Multiplanar and multisequence imaging of the shoulder was obtained without contrast. CLINICAL HISTORY: right shoulder pain. pain in upper humerus. heard a pop [id number] ago. limited rom. COMPARISON: None FINDINGS: Motion artifact limits exam. Bones and joints: There is no acute fracture, edema, or pathologic marrow replacement. Acromioclavicular joint degenerative disease is present and there is osteophytosis which narrows the supraspinatus outlet. Rotator cuff: Full-thickness tear anterior supraspinatus tendon at the footplate. Infraspinatus tendinopathy. No subscapularis tendon tear. Mild fatty atrophy of the supraspinatus muscle. Labrum: The biceps labral complex is intact. Anterior inferior labral tear best seen on sequence 4 image 17. Remaining labrum intact. The inferior glenohumeral ligament is intact. The biceps tendon is intact. No biceps tendon tear is identified. Other: There is a small joint effusion. Fluid in the subdeltoid bursa. IMPRESSION: Full-thickness supraspinatus tendon tear. Anterior-inferior labral tear. AC joint degenerative disease. Reviewed, Interpreted and Dictated by Doreen Gomez MD Transcribed by Rosanna Law Authenticated and [facility]
== END 2024-11-20 23:59 | disposition home or self-care (01) ==
LOC: RAD 10:33
PROVIDERS: PCP Nurse Practitioner Family; Visit Provider Nurse Practitioner Family
DX: M75.121 Complete rotator cuff tear or rupture of right shoulder, not specified as traumatic (principal); S43.491A Other sprain of right shoulder joint, initial encounter; M19.011 Primary osteoarthritis, right shoulder
CPT/HCPCS: 73218; 73221

== ENCOUNTER 2024-12-19 15:29 | Outpatient (CLI) | payer OTHER, SELFPAY ==
--- NOTE | 2024-12-19 15:36 | XR_ITS ---
FINAL REPORT CLINICAL HISTORY: preop clearance COMPARISON: 03/15/2019 FINDINGS: No acute pulmonary density is evident. There is no evidence of effusion or other pleural disease. The mediastinum has a normal appearance. The cardiac silhouette is unremarkable. IMPRESSION: Unremarkable chest exam. Reviewed, Interpreted and Dictated by Aurora Mcclelland MD Transcribed by Makayla Rowland Authenticated and [facility]
[2024-12-19 17:22] LABS: Hematocrit 41.4 % (37.0-47.0); Hemoglobin 13.7 g/dL (12.2-16.2); Immature Granulocytes % 0.5 %; Mean Corpuscular HGB Conc 33.1 g/dL (31.8-35.4); Mean Corpuscular Hemoglobin 31.4 pg (27.0-31.2); Mean Corpuscular Volume 94.7 fl (81-99); Nucleated Red Blood Cells % 0 %; Platelet Count 383 K/mm3 (142-424); Red Blood Count 4.37 M/mm3 (4.20-5.40); Red Cell Distribution Width-SD 41.4 fL; White Blood Count 10.6 K/mm3 (4.8-10.8)
[2024-12-19 17:58] LABS: Alanine Aminotransferase 26 U/L (12-78); Albumin Level 4.3 g/dl (3.5-5.0); Albumin/Globulin Ratio 1.7 (1.1-1.8); Alkaline Phosphatase 98 U/L (38-126); Anion Gap 15.7 mEq/L (5-15); Aspartate Amino Transferase 29 U/L (14-36); Bilirubin,Total 0.6 mg/dl (0.2-1.3); Blood Urea Nitrogen 19 mg/dl (7-17); Calcium 9.5 mg/dl (8.4-10.2); Carbon Dioxide 24 mmol/L (22.0-30.0); Chloride 104 mmol/L (98-107); Creatinine,Serum 0.70 mg/dl (0.52-1.04); Estimated Glomerular Filt Rate 89 ml/min (>60); GFR (African American) 107 ML/MIN (>60); Globulin 2.6 g/dL (1.3-3.2); Glucose 90 mg/dl (74-100); Potassium 4.7 mmoL/L (3.5-5.1); Sodium 139 mmol/L (136-145); Total Protein,Serum 6.9 g/dl (6.3-8.2)
== END 2024-12-19 23:59 | disposition home or self-care (01) ==
LOC: RAD 15:30
PROVIDERS: PCP Nurse Practitioner Family; Visit Provider Nurse Practitioner Family
DX: Z01.811 Encounter for preprocedural respiratory examination (principal); M75.101 Unspecified rotator cuff tear or rupture of right shoulder, not specified as traumatic; S43.431A Superior glenoid labrum lesion of right shoulder, initial encounter; R53.83 Other fatigue; R41.3 Other amnesia
CPT/HCPCS: 71046; 80053; 85025

== ENCOUNTER 2024-12-25 09:44 | Outpatient (CLI) | payer OTHER, SELFPAY ==
[2024-12-25 10:10] LABS: Hematocrit 40.6 % (37.0-47.0); Hemoglobin 13.4 g/dL (12.2-16.2); Immature Granulocytes % 0.3 %; Mean Corpuscular HGB Conc 33.0 g/dL (31.8-35.4); Mean Corpuscular Hemoglobin 31.2 pg (27.0-31.2); Mean Corpuscular Volume 94.4 fl (81-99); Nucleated Red Blood Cells % 0 %; Platelet Count 376 K/mm3 (142-424); Red Blood Count 4.30 M/mm3 (4.20-5.40); Red Cell Distribution Width-SD 40.8 fL; White Blood Count 9.2 K/mm3 (4.8-10.8)
[2024-12-25 10:37] LABS: Anion Gap 5.4 mEq/L (5-15); Blood Urea Nitrogen 14 mg/dl (7-17); Calcium 9.4 mg/dl (8.4-10.2); Carbon Dioxide 26 mmol/L (22.0-30.0); Chloride 104 mmol/L (98-107); Creatinine,Serum 0.80 mg/dl (0.52-1.04); Estimated Glomerular Filt Rate 76 ml/min (>60); GFR (African American) 92 ML/MIN (>60); Glucose 105 mg/dl (74-100); Potassium 4.4 mmoL/L (3.5-5.1); Sodium 131 mmol/L (136-145)
[2024-12-25 11:06] LABS: Hemoglobin A1C 5.5 % (4.0-6.0)
== END 2024-12-25 23:59 | disposition home or self-care (01) ==
LOC: LAB 09:45
PROVIDERS: PCP Nurse Practitioner Family; Visit Provider Orthopaedic Surgery
DX: Z01.812 Encounter for preprocedural laboratory examination (principal); R73.09 Other abnormal glucose; R06.02 Shortness of breath; Z87.898 Personal history of other specified conditions
CPT/HCPCS: 36415; 80048; 83036; 85025

== ENCOUNTER 2025-02-26 15:00 | Outpatient (RCR) | payer OTHER, SELFPAY | END 2025-02-26 23:59 | disposition home or self-care (01) | LOC: OT 15:00 | PROVIDERS: PCP Nurse Practitioner Family; Visit Provider Orthopaedic Surgery | DX: M25.511 Pain in right shoulder (principal) | CPT/HCPCS: 97140; 97165; 97530 ==